=== PATIENT | female | born 1965 | race African-American/Black ===

== ENCOUNTER → 2016-10-15 | Outpatient (CLI) | payer OTHER ==
--- NOTE | 2016-10-15 17:04 | XR ---
Right foot HISTORY: Pain 2 views of the right foot Correlation to right ankle same date Bone mineralization and alignment are maintained. Mild degenerative change at the first digit. There is a plantar calcaneal spur. Joint space loss, marginal spurring at the tibiotalar and intertarsal julissa ints. IMPRESSION: Osteoarthritis.
--- NOTE | 2016-10-15 17:05 | XR ---
Right ankle HISTORY: Pain 2 views of the right ankle correlated to right foot same date Loss of joint space at the tibiotalar joint with marginal spurring is present. There is a talar beak. Spurring present at the intertarsal joints. Bone mineralization and alignment are maintained. There is a plantar calcaneal spur. Small ossific density present distal to the medial malleolus. Suspect th ere is an osteochondral defect at the medial ankle mortise. IMPRESSION: Suspect osteochondral defect, ankle MRI may be of benefit. Osteoarthritis.
== END | disposition home or self-care (01) ==
LOC: RADXRMAIN 14:05
PROVIDERS: ATTEND Internal Medicine
DX: M19.071 Primary osteoarthritis, right ankle and foot (principal)

== ENCOUNTER → 2017-10-31 | Outpatient (CLI) | payer OTHER ==
--- NOTE | 2017-10-31 16:58 | XR ---
EXAMINATION TYPE: XR hand complete LT DATE OF EXAM: 10/31/2017 COMPARISON: NONE HISTORY: Pain in hand following fall TECHNIQUE: Three-view left hand FINDINGS: No acute fractures are evident. Soft tissues appear normal. Joint spaces are preserved. IMPRESSION: 1. Normal three-view left hand. 2. Follow-up exam can be performed 7-10 days from acute trauma for continued pain.
--- NOTE | 2017-10-31 17:00 | XR ---
EXAMINATION TYPE: XR knee complete RT DATE OF EXAM: 10/31/2017 COMPARISON: NONE HISTORY: Fall, pain TECHNIQUE: Right knee is examined in 3 projections FINDINGS: There is narrowing of the medial compartment joint space. Some narrowing of the lateral compartment j oint space is present. There is narrowing of the patellofemoral joint space. Small joint effusion is present. Posterior superior and posterior inferior patellar spurs as well as spurring from the anteri or tibia is present. Medial tibial plateau lateral tibial plateau and medial femoral condylar spurrin g is present. No acute fractures are identified. IMPRESSION: 1. No acute osseous abnormality. 2. Moderately advanced degenerative changes
--- NOTE | 2017-10-31 17:01 | XR ---
EXAMINATION TYPE: XR lumbar spine 2 or 3V DATE OF EXAM: 10/31/2017 COMPARISON: NONE HISTORY: Fall, pain TECHNIQUE: Three-view lumbar spine FINDINGS: Disc heights are preserved. Vertebral body heights are preserved. There is straightening of the vertebral body alignment in the lateral projection. There are 5 lumbar-type vertebral bodies. The pedicles are intact. IMPRESSION: 1. Normal three-view lumbar spine.
--- NOTE | 2017-11-01 14:34 | US ---
EXAMINATION TYPE: US venous doppler duplex LE RT DATE OF EXAM: 10/31/2017 4:24 PM COMPARISON: NONE CLINICAL HISTORY: M79.604 Pain in right leg. SIDE PERFORMED: Right TECHNIQUE: The lower extremity deep venous system is examined utilizing real time linear array sonog dariusz with graded compression, doppler sonography and color-flow sonography. VESSELS IMAGED: External Iliac Vein (EIV) Common Femoral Vein Deep Femoral Vein Greater Saphenous Vein * Femoral Vein Popliteal Vein Small Saphenous Vein * Proximal Calf Veins (* superficial vessels) Technically difficult study, patient unable to adduct leg. Right Leg: Negative for DVT IMPRESSION: No evidence of DVT.
== END | disposition home or self-care (01) ==
LOC: RADUSWWP 16:03
PROVIDERS: ATTEND Emergency Medicine
DX: M17.11 Unilateral primary osteoarthritis, right knee (principal); S60.221A Contusion of right hand, initial encounter; M79.661 Pain in right lower leg; M79.89 Other specified soft tissue disorders
CPT/HCPCS: 72100

== ENCOUNTER → 2017-11-03 | Outpatient (CLI) | payer OTHER ==
--- NOTE | 2017-11-03 17:02 | XR ---
EXAMINATION TYPE: XR cervical spine limited DATE OF EXAM: 11/03/2017 COMPARISON: NONE HISTORY: Pain after falling TECHNIQUE: 4 views FINDINGS: Vertebra have fairly normal alignment. Atlantoaxial facet joint is intact. There is hypertr ophic anterior spurring from C3 to C7. C7 is not well seen. Patient could not be in position for a sw immer's view. There is multilevel facet arthropathy in the cervical spine. Facet joints are not well defined. IMPRESSION: Degenerative spurring. There is moderate spurring in the facet joints for the patient's a ge. No fracture.
--- NOTE | 2017-11-03 17:04 | XR ---
EXAMINATION TYPE: XR shoulder complete LT DATE OF EXAM: 11/03/2017 COMPARISON: NONE HISTORY: Shoulder pain TECHNIQUE: 5 views FINDINGS: There is some spurring of the inferior glenoid labrum. I see no fracture nor dislocation. A C joint is intact. IMPRESSION: There is some osteoarthritis at the glenohumeral joint. No fracture seen.
== END | disposition home or self-care (01) ==
LOC: RADXRMAIN 16:20
PROVIDERS: ATTEND Emergency Medicine
DX: M46.02 Spinal enthesopathy, cervical region (principal); M19.012 Primary osteoarthritis, left shoulder
CPT/HCPCS: 72040

== ENCOUNTER 2017-11-06 08:28 | Observation (INO) | payer OTHER ==
[2017-11-06] MEDS ORDERED: SODIUM CHLORIDE 0.9% 500 ML IV STA (09:12)
[2017-11-06] MEDS ORDERED: LIDOCAINE 5% PATCH TOPICAL STA (09:12)
[2017-11-06] MEDS ORDERED: NITROGLYCERIN SL TABS 0.4 MG TAB SUBLINGUAL STA (09:12)
[2017-11-06] MEDS ORDERED: ASPIRIN 81 MG PO STA (09:12)
[2017-11-06] MEDS ORDERED: SODIUM CHLORIDE 0.9% 1,000 ML IV STA (09:12)
--- NOTE | 2017-11-06 09:15 | ED ---
General Adult HPI - General Chief complaint: Back Pain/Injury Stated complaint: Back Pain Time Seen by Provider: 11/06/17 09:03 Source: patient, RN notes reviewed Mode of arrival: EMS Limitations: no limitations - History of Present Illness Initial comments: Patient's a 52-year-old female who presents emergency room today with a chief complaint of lower back pain. She does admit that she had a slip and fall 5 days ago was seen and had x-rays obtained. She states it seems to be getting worse. She's been using [place]. Has not taken a [place] today because she knew she was coming to the hospital. She states she try to take a bath last night but had little relief the symptoms. She also missed that last night approximate 1 AM when she was taking his bath she began having some chest pain she describes it as a tightness and feels a little short of breath with it. She states this is new. She states has not had this before. Patient denies any recent fever, chills, shortness of breath, abdominal pain, nausea or vomiting, numbness or tingling, dysuria or hematuria, constipation or diarrhea, headaches or visual changes, or any other complaints. - Related Data Home Medications Medication Instructions Recorded Confirmed Hydrocodone/Acetaminophen [[place] 1 tab PO QID PRN 11/06/17 11/06/17 10-325] Zolpidem [Ambien] 10 mg PO HS 11/06/17 11/06/17 Allergies Allergy/AdvReac Type Severity Reaction Status Date / Time No Known Allergies Allergy Verified 11/06/17 09:04 Review of Systems ROS Statement: Those systems with pertinent positive or pertinent negative responses have been documented in the HPI. ROS Other: All systems not noted in ROS Statement are negative. Past Medical History Past Medical History: No Reported History Additional Past Medical History / Comment(s): Arthritis History of Any Multi-Drug Resistant Organisms: None Reported Past Surgical History: No Surgical Hx Reported Past Psychological History: Depression Smoking Status: Former smoker Past Alcohol Use History: Rare Past Drug Use History: None Reported General Exam - General Exam Comments Initial Comments: General: The patient is awake and alert, in no distress, and does not appear acutely ill. Eye: Pupils are equal, round and reactive to light, extra-ocular movements are intact. No nystagmus. There is normal conjunctiva bilaterally. No signs of icterus. Ears, nose, mouth and throat: There are moist mucous membranes and no oral lesions. Neck: The neck is supple, there is no tenderness or JVD. Cardiovascular: There is a regular rate and rhythm. No murmur, rub or gallop is appreciated. Tender to palpation over the anterior chest wall. Respiratory: Lungs are clear to auscultation, respirations are non-labored, breath sounds are equal. No wheezes, stridor, rales, or rhonchi. Musculoskeletal: Normal ROM. No appearance of thoracic lumbar spine. Mild tenderness lower lumbar L4-L5. Mild paravertebral tenderness both left and right sides. Patient does show slow movements due to pain. Strength 5/5. Sensation intact. Pulses equal bilaterally 2+. Neurological: A&O x 3. CN II-XII intact, There are no obvious motor or sensory deficits. Coordination appears grossly intact. Speech is normal. Skin: Skin is warm and dry and no rashes or lesions are noted. Psychiatric: Cooperative, appropriate mood & affect, normal judgment. Limitations: no limitations Course Vital Signs 11/06/17 11/06/17 11/06/17 08:41 09:47 10:53 Temperature 98.0 F Pulse Rate 61 71 60 Respiratory 18 20 20 Rate Blood Pressure 168/100 161/69 188/99 O2 Sat by Pulse 100 98 99 Oximetry 11/06/17 11:16 Temperature Pulse Rate 61 Respiratory 18 Rate Blood Pressure 168/97 O2 Sat by Pulse 98 Oximetry Medical Decision Making - Medical Decision Making Patient reexamined at time shows no signs of distress. She admits she still expresses some lower back pain. Her x-rays negative. Patient does admit that chest pain started approximately 1 AM. Initial set of cardiac enzymes are negative. She states she still expresses some chest discomfort. She describes it as a pressure. Patient will be admitted to the hospital for serial enzymes. - Lab Data Result diagrams: 11/06/17 09:35 11/06/17 09:35 Lab Results 11/06/17 11/06/17 11/06/17 Range/Units 09:35 09:35 09:35 WBC 3.4 L (3.8-10.6) k/uL RBC 4.32 (3.80-5.40) m/uL Hgb 13.0 (11.4-16.0) gm/dL Hct 39.9 (34.0-46.0) % MCV 92.4 (80.0-100.0) fL MCH 30.2 (25.0-35.0) pg MCHC 32.7 (31.0-37.0) g/dL RDW 13.8 (11.5-15.5) % Plt Count 218 (150-450) k/uL Neutrophils % 48 % Lymphocytes % 42 % Monocytes % 5 % Eosinophils % 3 % Basophils % 1 % Neutrophils # 1.6 (1.3-7.7) k/uL Lymphocytes # 1.4 (1.0-4.8) k/uL Monocytes # 0.2 (0-1.0) k/uL Eosinophils # 0.1 (0-0.7) k/uL Basophils # 0.0 (0-0.2) k/uL PT (9.0-12.0) sec INR (<1.2) APTT (22.0-30.0) sec D-Dimer (<0.60) mg/L FEU Sodium 142 (137-145) mmol/L Potassium 4.1 (3.5-5.1) mmol/L Chloride 105 (98-107) mmol/L Carbon Dioxide 29 (22-30) mmol/L Anion Gap 8 mmol/L BUN 13 (7-17) mg/dL Creatinine 0.79 (0.52-1.04) mg/dL Est GFR (MDRD) Af Amer >60 (>60 ml/min/1.73 sqM) Est GFR (MDRD) Non-Af >60 (>60 ml/min/1.73 sqM) Glucose 98 (74-99) mg/dL Calcium 9.4 (8.4-10.2) mg/dL Magnesium 1.9 (1.6-2.3) mg/dL Total Bilirubin 0.4 (0.2-1.3) mg/dL AST 18 (14-36) U/L ALT 31 (9-52) U/L Alkaline Phosphatase 70 (38-126) U/L Total Creatine Kinase 85 (30-135) U/L CK-MB (CK-2) 1.3 (0.0-2.4) ng/mL CK-MB (CK-2) Rel Index 1.5 Troponin I <0.012 (0.000-0.034) ng/mL NT-Pro-B Natriuret Pep pg/mL Total Protein 6.6 (6.3-8.2) g/dL Albumin 3.8 (3.5-5.0) g/dL 11/06/17 11/06/17 Range/Units 09:35 09:35 WBC (3.8-10.6) k/uL RBC (3.80-5.40) m/uL Hgb (11.4-16.0) gm/dL Hct (34.0-46.0) % MCV (80.0-100.0) fL MCH (25.0-35.0) pg MCHC (31.0-37.0) g/dL RDW (11.5-15.5) % Plt Count (150-450) k/uL Neutrophils % % Lymphocytes % % Monocytes % % Eosinophils % % Basophils % % Neutrophils # (1.3-7.7) k/uL Lymphocytes # (1.0-4.8) k/uL Monocytes # (0-1.0) k/uL Eosinophils # (0-0.7) k/uL Basophils # (0-0.2) k/uL PT 10.2 (9.0-12.0) sec INR 1.0 (<1.2) APTT 25.7 (22.0-30.0) sec D-Dimer 0.30 (<0.60) mg/L FEU Sodium (137-145) mmol/L Potassium (3.5-5.1) mmol/L Chloride (98-107) mmol/L Carbon Dioxide (22-30) mmol/L Anion Gap mmol/L BUN (7-17) mg/dL Creatinine (0.52-1.04) mg/dL Est GFR (MDRD) Af Amer (>60 ml/min/1.73 sqM) Est GFR (MDRD) Non-Af (>60 ml/min/1.73 sqM) Glucose (74-99) mg/dL Calcium (8.4-10.2) mg/dL Magnesium (1.6-2.3) mg/dL Total Bilirubin (0.2-1.3) mg/dL AST (14-36) U/L ALT (9-52) U/L Alkaline Phosphatase (38-126) U/L Total Creatine Kinase (30-135) U/L CK-MB (CK-2) (0.0-2.4) ng/mL CK-MB (CK-2) Rel Index Troponin I (0.000-0.034) ng/mL NT-Pro-B Natriuret Pep 101 pg/mL Total Protein (6.3-8.2) g/dL Albumin (3.5-5.0) g/dL Disposition Clinical Impression: Chest pain, Low back pain Disposition: ADMITTED IP TO THIS HOSP Condition: Stable Referrals: Papa Shelton MD [Primary Care Provider] - 1-2 days Time of Disposition: 11:47
[2017-11-06 09:58] LABS: Basophils % (A) 1 %; Eosinophils # (A) 0.1 k/uL (0-0.7); Eosinophils % (A) 3 %; HCT 39.9 % (34.0-46.0); Lymphocytes # (A) 1.4 k/uL (1.0-4.8); Lymphocytes % (A) 42 %; MCH 30.2 pg (25.0-35.0); MCHC 32.7 g/dL (31.0-37.0); MCV 92.4 fL (80.0-100.0); Mean Platelet Volume 6.6; Monocytes # (A) 0.2 k/uL (0-1.0); Monocytes % (A) 5 %; Neutrophils # (A) 1.6 k/uL (1.3-7.7); Neutrophils % (A) 48 %; Platelet Count 218 k/uL (150-450); RBC 4.32 m/uL (3.80-5.40); RDW 13.8 % (11.5-15.5); WBC 3.4 k/uL (3.8-10.6)
[2017-11-06 10:08] LABS: D-Dimer 0.3 mg/L FEU (<0.60)
[2017-11-06 10:11] LABS: ALT 31 U/L (9-52); AST 18 U/L (14-36); Albumin 3.8 g/dL (3.5-5.0); Alkaline Phosphatase 70 U/L (38-126); Anion Gap 8 mmol/L; Blood Urea Nitrogen 13 mg/dL (7-17); Calcium 9.4 mg/dL (8.4-10.2); Carbon Dioxide 29 mmol/L (22-30); Chloride 105 mmol/L (98-107); Glucose 98 mg/dL (74-99); Magnesium 1.9 mg/dL (1.6-2.3); Potassium 4.1 mmol/L (3.5-5.1); Sodium 142 mmol/L (137-145); Total Bilirubin 0.4 mg/dL (0.2-1.3); Total Protein 6.6 g/dL (6.3-8.2)
[2017-11-06 10:14] LABS: Partial Thromboplastin Time 25.7 sec (22.0-30.0); Prothrombin Time 10.2 sec (9.0-12.0)
[2017-11-06 10:18] LABS: Creatine Kinase 85 U/L (30-135)
[2017-11-06 10:32] LABS: Creatine Kinase MB 1.3 ng/mL (0.0-2.4); Troponin I <0.012 ng/mL (0.000-0.034)
--- NOTE | 2017-11-06 10:42 | XR ---
EXAMINATION TYPE: XR lumbar spine 2 or 3V DATE OF EXAM: 11/06/2017 CLINICAL HISTORY: pain TECHNIQUE: Three views of the lumbar spine are submitted. COMPARISON: None. FINDINGS: There are 5 lumbar type vertebral bodies identified. The lumbar spine shows satisfactory alignment w ithout evidence of acute fracture or dislocation. Vertebral body heights are within normal limits. Mild degenerative disc space narrowing and spondylosis. Facet joint arthropathy noted. The overlying soft tissue appears unremarkable. IMPRESSION: No acute fracture or dislocation is seen in the lumbar spine. ICD 10 NO FRACTURE, INITIAL EVALUATION
--- NOTE | 2017-11-06 10:42 | XR ---
EXAMINATION TYPE: XR chest 2V DATE OF EXAM: 11/06/2017 COMPARISON: NONE HISTORY: Shortness of breath TECHNIQUE: Frontal and lateral views of the chest are obtained. FINDINGS: Scattered senescent parenchymal changes noted. Hyperinflation compatible with COPD. No evidence for infiltrate. No evidence for atelectasis. Heart size is stable. Mediastinal structures are stable and grossly unremarkable. No evidence for hilar prominence. Degenerative changes dorsal spine. IMPRESSION: 1. No evidence for acute pulmonary disease.
[2017-11-06] MEDS ORDERED: MORPHINE SULFATE 4 MG/ML SYRINGE IV STA (11:08)
[2017-11-06] MEDS ORDERED: MORPHINE SULFATE 4 MG/ML SYRINGE IVP PRN (11:47)
[2017-11-06] MEDS ORDERED: HEPARIN SODIUM,PORCINE 5,000 UNIT/ML 1 ML VIAL IV ONE (11:47)
[2017-11-06] MEDS ORDERED: NITROGLYCERIN SL TABS 0.4 MG TAB SUBLINGUAL PRN (11:47)
[2017-11-06] MEDS ORDERED: HEPARIN SOD,PORK IN 0.45% NACL 25,000 UNIT in 0.45% NACL 1 500ML.BAG IV SCH (12:00)
[2017-11-06 12:42] LABS: Appearance,Urine Clear (Clear); Bilirubin,Urine Negative (Negative); Blood,Urine Negative (Negative); Color,Urine Light Yellow; Glucose,Urine (UA) Negative (Negative); Ketones,Urine Negative (Negative); Leukocyte Esterase,Urine Negative (Negative); Nitrite,Urine Negative (Negative); PH, Urine 6.5 (5.0-8.0); Protein,Urine Negative (Negative); Specific Gravity,Urine 1.008 (1.001-1.035); Urobilinogen,Urine <2.0 mg/dL (<2.0)
[2017-11-06] MEDS: HYDROcodone/APAP 5-325MG 1 EACH TAB PO PRN ×2 (16:36→21:53)
[2017-11-06 17:29] LABS: Creatine Kinase 79 U/L (30-135)
[2017-11-06 17:41] LABS: Troponin I <0.012 ng/mL (0.000-0.034)
[2017-11-06 19:01] VITALS: BMI 34.0
[2017-11-06] MEDS ORDERED: HEPARIN SODIUM,PORCINE 5,000 UNIT/ML 1 ML VIAL IV PRN (19:11)
[2017-11-06] MEDS: DOCUSATE 100 MG CAP PO SCH (21:53)
[2017-11-06] MEDS: ZOLPIDEM 10 MG TAB PO SCH (21:53)
[2017-11-06] MEDS: CYCLOBENZAPRINE 10 MG TAB PO PRN (21:56)
[2017-11-06 23:56] LABS: Cholesterol 168 mg/dL (<200); HDL Cholesterol 80 mg/dL (40-60); LDL Cholesterol,Calculated 77 mg/dL (0-99); Triglycerides 56 mg/dL (<150)
[2017-11-07] MEDS: HYDROcodone/APAP 5-325MG 1 EACH TAB PO PRN ×3 (04:31→20:25)
[2017-11-07] MEDS ORDERED: ASPIRIN 325 MG TAB PO SCH (09:00)
[2017-11-07] MEDS: DOCUSATE 100 MG CAP PO SCH (09:28)
--- NOTE | 2017-11-07 09:55 | P.CRDCN ---
History of Present Illness Consult date: 11/07/17 Consult reason: chest pain History of present illness: This is a 52-year-old -[place] female with no significant past medical history. She denies history of coronary artery disease but was a former smoker. She quit 2 years ago. We have been asked to see her in consultation for complaints of chest pain. She states she had a slip and near fall earlier this month and strained her lower back. She's been struggling with movement frequently ever since. She states yesterday she was in the bathtub and was unable to get herself up and out secondary to her lower back pain hurting. She had been struggling for approximately 20 minutes and she started developing tightness in the center of her chest. This was associated with mild shortness of breath. She denies associated palpitations, dizziness, nausea, vomiting. She states the pain is still ongoing. It is worse with movement and deep inspiration. She is unable to lean forward for me to fully examine her secondary to the generalized pain. EKG reveals sinus mechanism with no acute ST or T-wave abnormalities. Chest xray is negative for an acute cardiopulmonary process. Xray of L-spine is negative for fracture. Laboratory data reviewed, hgb 13.0, plt 218, potassium 4.1, magnesium 1.9, d- dimer negative, cardiac enzymes negative x2, LDL 77, HDL 80. She takes no cardiac medications. There is no old cardiac records to review. Review of Systems At the time of my exam: CONSTITUTIONAL: Denies fever. Denies chills. EYES: Denies blurred vision. Denies vision changes. Denies eye pain. EARS, NOSE, MOUTH & THROAT: Denies headache. Denies sore throat. Denies ear pain. CARDIOVASCULAR: Denies chest pain. Denies shortness of breath. Denies orthopnea. Denies PND. Denies palpitations. RESPIRATORY: Denies cough. GASTROINTESTINAL: Denies abdominal pain. Denies diarrhea. Denies constipation. Denies nausea. Denies vomiting. MUSCULOSKELETAL: Complains of low back and thoracic pain, worse with inspiration or movement. INTEGUMENTARY: Denies pruitis. Denies rash. NEUROLOGIC: Denies numbness. Denies tingling. Denies weakness. PSYCHIATRIC: Denies anxiety. Denies depression. ENDOCRINE: Denies fatigue. Denies weight change. Denies polydipsia. Denies polyurina. GENITOURINARY: Denies burning, hematuria or urgency with micturation. HEMATOLOGIC: Denies history of anemia. Denies bleeding. Past Medical History Past Medical History: No Reported History, Hypertension, Osteoarthritis (OA) Additional Past Medical History / Comment(s): Arthritis bilateral legs, L ankle , pt states she was placed on HTN med last summer but took herself off. History of Any Multi-Drug Resistant Organisms: None Reported Past Surgical History: Orthopedic Surgery, Tonsillectomy Additional Past Surgical History / Comment(s): L ankle sx for arthritis. Past Anesthesia/Blood Transfusion Reactions: No Reported Reaction, Motion Sickness Past Psychological History: Depression Additional Psychological History / Comment(s): Pt resides alone. She is currently using a cane. She drives. Smoking Status: Former smoker Past Alcohol Use History: Rare Additional Past Alcohol Use History / Comment(s): Pt started smoking in 1983 and quit in 2015. Past Drug Use History: None Reported - Past Family History Father Family Medical History: Dementia Mother Family Medical History: No Reported History Additional Family Medical History / Comment(s): Mother is healthy Medications and Allergies Home Medications Medication Instructions Recorded Confirmed Type Hydrocodone/Acetaminophen [[place] 1 tab PO QID PRN 11/06/17 11/06/17 History 10-325] Zolpidem [Ambien] 10 mg PO HS 11/06/17 11/06/17 History Allergies Allergy/AdvReac Type Severity Reaction Status Date / Time No Known Allergies Allergy Verified 11/06/17 09:04 Physical Exam Vitals: Vital Signs Temp Pulse Pulse Pulse Resp BP BP 11/07/17 04:00 98.2 F 72 16 133/93 11/07/17 03:37 16 11/07/17 00:00 16 11/06/17 23:23 98.2 F 97 16 162/87 11/06/17 20:00 16 11/06/17 19:25 98.2 F 62 16 146/81 11/06/17 16:00 97.9 F 58 L 16 172/113 11/06/17 13:35 98.6 F 60 18 144/99 11/06/17 11:16 61 18 168/97 11/06/17 10:53 60 20 188/99 11/06/17 09:47 71 20 161/69 11/06/17 08:41 98.0 F 61 18 168/100 Pulse Ox 11/07/17 04:00 11/07/17 03:37 11/07/17 00:00 11/06/17 23:23 97 11/06/17 20:00 11/06/17 19:25 98 11/06/17 16:00 100 11/06/17 13:35 100 11/06/17 11:16 98 11/06/17 10:53 99 11/06/17 09:47 98 11/06/17 08:41 100 Intake and Output 11/06/17 11/07/17 11/07/17 22:59 06:59 14:59 Intake Total 131.906 68.272 Balance 131.906 68.272 Intake: Intake, IV Titration 131.906 68.272 Amount Heparin Sod,Pork in 0.45% 131.906 68.272 NaCl 25,000 unit In 0.45 % NaCl 1 500ml.bag @ 12 UNITS/KG/HR 19.59 mls/hr IV .Q24H [facility] Rx#: [id number] Other: Voiding Method Toilet Toilet # Voids 1 1 # Bowel Movements 1 Blood pressure 133/93 heart rate 72 afebrile GENERAL: This is a 52-year-old -[place] female in no apparent distress at the time of my examination. HEENT: Head is atraumatic, normocephalic. Pupils are equal, round. Sclerae anicteric. Conjunctivae are clear. Mucous membranes of the mouth are moist. Neck is supple. There is no jugular venous distention. No carotid bruit is heard. LUNGS: Clear to auscultation no wheezes, rales or rhonchi. No chest wall tenderness is noted on palpation or with deep breathing. HEART: Regular rate and rhythm without murmurs, rubs or gallops. S1 and S2 heard. ABDOMEN: Soft, nontender. Bowel sounds are heard. No organomegaly noted. EXTREMITIES: No evidence of peripheral edema and no calf tenderness noted. VASCULAR: Radial and dorsalis pedis pulses palpated, no evidence of clubbing. NEUROLOGIC: Patient is awake, alert and oriented x3. Results 11/06/17 09:35 11/06/17 09:35 Cardiac Enzymes 11/06/17 11/06/17 11/06/17 Range/Units 09:35 09:35 16:44 AST 18 (14-36) U/L CK-MB (CK-2) 1.3 1.0 (0.0-2.4) ng/mL Troponin I <0.012 <0.012 (0.000-0.034) ng/mL Coagulation 11/06/17 11/06/17 Range/Units 09:35 16:44 PT 10.2 (9.0-12.0) sec APTT 25.7 83.0 H (22.0-30.0) sec Lipids 11/06/17 Range/Units 09:35 Triglycerides 56 (<150) mg/dL Cholesterol 168 (<200) mg/dL HDL Cholesterol 80 H (40-60) mg/dL CBC 11/06/17 Range/Units 09:35 WBC 3.4 L (3.8-10.6) k/uL RBC 4.32 (3.80-5.40) m/uL Hgb 13.0 (11.4-16.0) gm/dL Hct 39.9 (34.0-46.0) % Plt Count 218 (150-450) k/uL Comprehensive Metabolic Panel 11/06/17 Range/Units 09:35 Sodium 142 (137-145) mmol/L Potassium 4.1 (3.5-5.1) mmol/L Chloride 105 (98-107) mmol/L Carbon Dioxide 29 (22-30) mmol/L BUN 13 (7-17) mg/dL Creatinine 0.79 (0.52-1.04) mg/dL Glucose 98 (74-99) mg/dL Calcium 9.4 (8.4-10.2) mg/dL AST 18 (14-36) U/L ALT 31 (9-52) U/L Alkaline Phosphatase 70 (38-126) U/L Total Protein 6.6 (6.3-8.2) g/dL Albumin 3.8 (3.5-5.0) g/dL Current Medications Generic Name Dose Route Start Last Admin Trade Name Freq PRN Reason Stop Dose Admin Hydrocodone Bitart/Acetaminophen 1 each 11/06/17 14:51 11/07/17 04:31 [place] 5-325 PO 1 each Q4HR PRN Administration Pain Aspirin 325 mg 11/07/17 09:00 Aspirin PO DAILY [facility] Cyclobenzaprine HCl 10 mg 11/06/17 20:55 11/06/17 21:56 Flexeril PO 10 mg TID PRN Administration Muscle Spasm Docusate Sodium 100 mg 11/06/17 21:00 11/06/17 21:53 Colace PO 100 mg BID [facility] Administration Heparin Sodium (Porcine) 0 unit 11/06/17 19:11 Heparin IV PER PROTOCOL PRN Low PTT Protocol Heparin Sodium/Sodium Chloride 500 mls @ 19.59 mls/hr 11/06/17 12:00 23:20 25,000 unit/ Sodium Chloride IV 0 units/kg/hr .Q24H [facility] 0 mls/hr Protocol Titration 12 UNITS/KG/HR Morphine Sulfate 2 mg 11/06/17 11:47 Morphine Sulfate (Inj) IVP Q5M PRN Chest Pain Nitroglycerin 0.4 mg 11/06/17 11:47 Nitrostat SUBLINGUAL Q5M PRN Chest Pain Zolpidem Tartrate 10 mg 11/06/17 21:00 11/06/17 21:53 Ambien PO 10 mg HS [facility] Administration Intake and Output 11/06/17 11/07/17 11/07/17 22:59 06:59 14:59 Intake Total 131.906 68.272 Balance 131.906 68.272 Intake: Intake, IV Titration 131.906 68.272 Amount Heparin Sod,Pork in 0.45% 131.906 68.272 NaCl 25,000 unit In 0.45 % NaCl 1 500ml.bag @ 12 UNITS/KG/HR 19.59 mls/hr IV .Q24H [facility] Rx#: [id number] Other: Voiding Method Toilet Toilet # Voids 1 1 # Bowel Movements 1 11/06/17 09:35 11/06/17 09:35 Assessment and Plan Assessment: ASSESSMENT 1. Pleuritic chest pain s/p recent back injury. No evidence of cardiac ischemia. No EKG changes, cardiac enzymes unremarkable. PLAN From a cardiac perspective there is no indication of this to be related to cardiac cause, an acute coronary event has been ruled out. Her pain is musculoskeletal in nature and possibly anti-inflammatory analgesic may be helpful. Stable for discharge from cardiac perspective. Thank you kindly for this consultation. Nurse Practitioner note has been reviewed, I agree with a documented findings and plan of care. Patient was seen and examined.
--- NOTE | 2017-11-07 10:34 | P.HPIM ---
History of Present Illness H&P Date: 11/06/17 Chief Complaint: Lower back pain and chest tightness A 52-year-old female with a history of hypertension and arthritis came to ER with complaints of lower back pain. patient is that she had an accident at work where he slip and fall about 5 days ago. Patient had x-ray done at that time showed no acute fracture abnormality. Patient says that has been getting worse and she she is taking [place] at home. Patient apparently went to shower last night she began to have tightness in her chest and worsening back pain and mild shortness of breath. Patient came to the hospital for further evaluation. Patient initially came to the hospital with back pain lower area did while in the ER patient also felt chest tightness again and was admitted to the hospital for cardiac ablation. Patient denies any recent fever, chills, shortness of breath, abdominal pain, nausea or vomiting, numbness or tingling, dysuria or hematuria, constipation or diarrhea, headaches or visual changes, or any other complaints. EKG showed sinus rhythm. Chest x-ray negative for acute problem process x-ray of the LS spine is negative for fracture dislocation. Troponin 1 negative D-dimer negative Review of Systems Constitutional: Patient denies any fever or chills . No generalized weakness or weight loss. Abdomen: Patient denied nausea vomiting and diarrhea and abdominal pain. Cardiovascular: Patient denies any chest pain or short of breath no palpitations. Respiratory: patient denied any cough is from production. No shortness of breath Neurologic: Patient denied any numbness or tingling headache. Musculoskeletal: Patient denies any complaints of joint swelling or deformity. Lower back pain Skin: Negative Psychiatric: Negative Endocrine: No heat or cold intolerance. No recent weight gain. Genitourinary: No dysuria or hematuria. All other 14 point ROS negative except the above Past Medical History Past Medical History: No Reported History, Hypertension, Osteoarthritis (OA) Additional Past Medical History / Comment(s): Arthritis bilateral legs, L ankle , pt states she was placed on HTN med last summer but took herself off. History of Any Multi-Drug Resistant Organisms: None Reported Past Surgical History: Orthopedic Surgery, Tonsillectomy Additional Past Surgical History / Comment(s): L ankle sx for arthritis. Past Anesthesia/Blood Transfusion Reactions: No Reported Reaction, Motion Sickness Smoking Status: Former smoker - Past Family History Father Family Medical History: Dementia Mother Family Medical History: No Reported History Additional Family Medical History / Comment(s): Mother is healthy Medications and Allergies Home Medications Medication Instructions Recorded Confirmed Type Hydrocodone/Acetaminophen [[place] 1 tab PO QID PRN 11/06/17 11/06/17 History 10-325] Zolpidem [Ambien] 10 mg PO HS 11/06/17 11/06/17 History Allergies Allergy/AdvReac Type Severity Reaction Status Date / Time No Known Allergies Allergy Verified 11/06/17 09:04 Physical Exam Vitals: Vital Signs Temp Pulse Resp BP Pulse Ox 11/06/17 13:35 98.6 F 60 18 144/99 100 11/06/17 11:16 61 18 168/97 98 11/06/17 10:53 60 20 188/99 99 11/06/17 09:47 71 20 161/69 98 11/06/17 08:41 98.0 F 61 18 168/100 100 Intake and Output 11/05/17 11/06/17 11/06/17 22:59 06:59 14:59 Other: Weight 81.647 kg Patient Weight 11/07/17 06:59 Weight 81.647 kg PHYSICAL EXAMINATION: Patient is lying in the bed comfortably, no acute distress, awake alert and oriented.. HEENT: Normocephalic. Neck is supple. Pupils reactive. Nostrils clear. Oral cavity is moist. Ears reveal no drainage. Neck reveals no JVD, carotid bruits, or thyromegaly. CHEST EXAMINATION: Trachea is central. Symmetrical expansion. Lung coronel clear to auscultation and percussion. CARDIAC: Normal S1, S2 with no gallops. No murmurs ABDOMEN: Soft. Bowel sounds normal. No organomegaly. No abdominal bruits. Extremities: reveal no edema. No clubbing or cyanosis Neurologically awake, alert, oriented x3 with well-coordinated movements. No focal deficits noted Skin: No rash or skin lesions. Psychiatric: Coperative. Nonsuicidal Musculoskeletal: No joint swelling or deformity. Normal range of motion. Results CBC & Chem 7: 11/06/17 09:35 11/06/17 09:35 Labs: Abnormal Lab Results - Last 24 Hours (Table) 11/06/17 Range/Units 09:35 WBC 3.4 L (3.8-10.6) k/uL Thrombosis Risk Factor Assmnt - Choose All That Apply Any of the Below Risk Factors Present?: Yes Each Factor Represents 1 point: Age 41-60 years, Obesity (BMI >25) Other Risk Factors: No Other congenital or acquired thrombophilia - If yes, enter type in comment: No Thrombosis Risk Factor Assessment Total Risk Factor Score: 2 Thrombosis Risk Factor Assessment Level: Low Risk Assessment and Plan Assessment: Lower back pain status post recent fall 5 days ago. No fracture noted and x-ray Chest tightness likely musculoskeletal. Rule out ACS Hypertension Osteoarthritis Plan: Patient will be continued on pain management and muscle relaxants. Telemetry monitoring and serial EKGs and troponins. Will follow closely. Further admissions based on the clinical course. Time with Patient: Greater than 30
[2017-11-07] MEDS: KETOROLAC 30 MG/ML 1 ML VIAL IVP SCH ×2 (11:46→18:04)
[2017-11-07] MEDS ORDERED: MORPHINE ORAL SOLN 10 MG/5 ML CUP PO PRN (13:17)
[2017-11-07] MEDS: CYCLOBENZAPRINE 10 MG TAB PO PRN (15:04)
[2017-11-07] MEDS: ZOLPIDEM 10 MG TAB PO SCH (20:25)
--- NOTE | 2017-11-07 23:33 | P.PN ---
Subjective Progress Note Date: 11/07/17 Principal diagnosis: Lower back pain A 52-year-old female with a history of hypertension and arthritis came to ER with complaints of lower back pain. patient is that she had an accident at work where he slip and fall about 5 days ago. Patient had x-ray done at that time showed no acute fracture abnormality. Patient says that has been getting worse and she she is taking [place] at home. Patient apparently went to shower last night she began to have tightness in her chest and worsening back pain and mild shortness of breath. Patient came to the hospital for further evaluation. Patient initially came to the hospital with back pain lower area did while in the ER patient also felt chest tightness again and was admitted to the hospital for cardiac ablation. Patient denies any recent fever, chills, shortness of breath, abdominal pain, nausea or vomiting, numbness or tingling, dysuria or hematuria, constipation or diarrhea, headaches or visual changes, or any other complaints. EKG showed sinus rhythm. Chest x-ray negative for acute problem process x-ray of the LS spine is negative for fracture dislocation. Troponin 1 negative D-dimer negative 11/07/2017 Patient denied any complaints of chest pain or shortness of breath. Otherwise patient is still having lower back pain and unable to move around the bed. No fever no chills. No acute overnight issues. Patient is being continued on pain management and encouraged ambulation. All other review of systems negative except the above Current medications reviewed Objective - Vital Signs Vital signs: Vital Signs Temp 98.4 F 11/07/17 19:39 Pulse 64 11/07/17 19:39 Resp 16 11/07/17 20:00 BP 147/94 11/07/17 19:39 Pulse Ox 100 11/07/17 19:39 Intake & Output 11/07/17 11/07/17 11/08/17 06:59 18:59 06:59 Intake Total 672.972 5387 Balance 697.100 2539 Intake: Intake, IV Titration 200.178 Amount Heparin Sod,Pork in 0.45% 200.178 NaCl 25,000 unit In 0.45 % NaCl 1 500ml.bag @ 12 UNITS/KG/HR 19.59 mls/hr IV .Q24H [facility] Rx#: [id number] Oral 1322 Other: Voiding Method Toilet Toilet Toilet # Voids 1 1 # Bowel Movements 1 - Exam PHYSICAL EXAMINATION: Patient is lying in the bed comfortably, no acute distress, awake alert and oriented.. HEENT: Normocephalic. Neck is supple. Pupils reactive. Nostrils clear. Oral cavity is moist. Ears reveal no drainage. Neck reveals no JVD, carotid bruits, or thyromegaly. CHEST EXAMINATION: Trachea is central. Symmetrical expansion. Lung coronel clear to auscultation and percussion. CARDIAC: Normal S1, S2 with no gallops. No murmurs ABDOMEN: Soft. Bowel sounds normal. No organomegaly. No abdominal bruits. Extremities: reveal no edema. No clubbing or cyanosis Neurologically awake, alert, oriented x3 with well-coordinated movements. No focal deficits noted Skin: No rash or skin lesions. Psychiatric: Coperative. Nonsuicidal Musculoskeletal: No joint swelling or deformity. Normal range of motion. - Labs CBC & Chem 7: 11/06/17 09:35 11/06/17 09:35 Labs: Abnormal Lab Results - Last 24 Hours (Table) 11/06/17 Range/Units 09:35 HDL Cholesterol 80 H (40-60) mg/dL Assessment and Plan Assessment: Lower back pain status post recent fall 5 days ago. No fracture noted and x-ray Chest tightness likely musculoskeletal. Rule out ACS Hypertension Osteoarthritis Plan: Patient will be continued on pain management and muscle relaxants. Telemetry monitoring and serial EKGs and troponins. Will follow closely. Further admissions based on the clinical course.
[2017-11-08] MEDS: CYCLOBENZAPRINE 10 MG TAB PO PRN (00:04)
[2017-11-08] MEDS: DOCUSATE 100 MG CAP PO SCH ×2 (00:04→08:25)
[2017-11-08] MEDS: KETOROLAC 30 MG/ML 1 ML VIAL IVP SCH ×3 (00:04→11:59)
[2017-11-08] MEDS: HYDROcodone/APAP 5-325MG 1 EACH TAB PO PRN ×3 (03:30→14:02)
[2017-11-08 08:57] VITALS: RESP 18
--- NOTE | 2017-11-08 10:26 | CONS ---
CONSULTATION This is a lady who is 52 years of age. She came after having fallen and hurt her back. She was seen by Dr. Abad yesterday. Her EKG was unremarkable troponins were unremarkable. She had minor nonspecific T-wave changes. It was thought her symptoms were noncardiac, but yesterday while she was trying to take a shower she developed pressure in the chest, raising the possibility of angina, and I was asked to see her. Repeat EKG at that time suggests nonspecific changes in apicolateral leads. This morning she is resting comfortably, has no symptoms of any chest discomfort. Her blood pressure is 128/80. Pulse rate is about 70 per minute. There is no JVD or carotid bruit. S1, S2 are heard normally. No significant rub, murmur or gallop was detected. Lungs are clear. Abdomen is soft, nontender. Lower extremities reveal normal pulses. No edema. Central nervous system is normal. EKG this morning was repeated and revealed a sinus rhythm. There are very nonspecific T-wave changes noted. I am also recommending a BMP on this lady and another additional troponin. IMPRESSION: 1. Chest pain syndrome with equivocal, nonspecific ST-T changes; could be related to LVH-type picture and patient does have borderline hypertension. 2. Recent fall with back discomfort. RECOMMENDATIONS: I will check an additional troponin. Repeat EKG does not reveal any significant changes that would require intervention. We will check an additional troponin level and also a BMP to rule out electrolyte abnormalities. Thank you very much for the consult. MMODL / IJN: [id number] /
[2017-11-08 11:01] LABS: Anion Gap 7 mmol/L; Blood Urea Nitrogen 19 mg/dL (7-17); Calcium 9.7 mg/dL (8.4-10.2); Carbon Dioxide 31 mmol/L (22-30); Chloride 104 mmol/L (98-107); Glucose 80 mg/dL (74-99); Potassium 4.3 mmol/L (3.5-5.1); Sodium 142 mmol/L (137-145)
[2017-11-08] MEDS ORDERED: LIDOCAINE 5% PATCH TOPICAL SCH (11:30)
[2017-11-08 12:34] VITALS: BP 143/88; PULSE 60; TEMP 98.1
--- NOTE | 2017-11-08 15:42 | CT ---
EXAMINATION TYPE: CT lumbar spine wo con DATE OF EXAM: 11/08/2017 COMPARISON: Radiographs 11/06/2017 HISTORY: 52-year-old female with back pain after fall, Low back pain post trauma on 10/30/17 TECHNIQUE: Contiguous axial scanning of the lumbar spine without IV contrast. Coronal and sagittal re constructions performed. CT DLP: 1374.4 mGycm Automated exposure control for dose reduction was used. FINDINGS: Incidental 2.7 cm hypodense lesion left kidney suggestive of a cyst. Visualized SI joints are intact with mild degenerative changes on the right. No prevertebral or paravertebral soft tissue abnormality seen. Vertebral body heights are maintained. Hypertrophic facet arthropathy is present throughout with trace grade 1 anterolisthesis at L4-L5. Bulging discs are also present throughout, largest at L4-L5. However, there is no large focal disc herniation compromising the spinal canal. Disc bulge at L4-L5 m inimally impresses upon the ventral thecal sac. Changes also result in mild inferior foraminal narrowing inferiorly on either side. IMPRESSION: 1. NO VERTEBRAL COMPRESSION COLLAPSE. 2. 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 3. MILD MULTILEVEL DEGENERATIVE DISC DISEASE. BULGING DISCS IMPRESS ONTO THE VENTRAL THECAL SAC ESPEC IALLY AT L4-L5 BUT DO NOT CONTRIBUTE TO A SIGNIFICANT SPINAL CANAL STENOSIS. 4. VARIABLE MILD INFERIOR FORAMINAL NARROWING SCATTERED THROUGHOUT.
--- NOTE | 2017-12-08 22:01 | P.DS ---
Providers Date of admission: 11/06/17 11:47 Expected date of discharge: 11/08/17 Attending physician: Aiyana Ames Consults: 11/06/17 11:47 Consult Physician Stat Consulting Provider: [facility] Consult Reason/Comments: Chest pain Do you want consulting provider notified?: Yes 11/08/17 09:32 Consult Physician Routine Consulting Provider: Cassie Rabago Consult Reason/Comments: chest pain Do you want consulting provider notified?: Already Contacted Primary care physician: Cat Elam Hospital Course: Discharge diagnosis Lower back pain status post recent fall 5 days ago. No fracture noted and x-ray Chest tightness likely musculoskeletal. Rule out ACS Hypertension Osteoarthritis Hospital course A 52-year-old female with a history of hypertension and arthritis came to ER with complaints of lower back pain. patient is that she had an accident at work where he slip and fall about 5 days ago. Patient had x-ray done at that time showed no acute fracture abnormality. Patient says that has been getting worse and she she is taking Mcnary at home. Patient apparently went to shower last night she began to have tightness in her chest and worsening back pain and mild shortness of breath. Patient came to the hospital for further evaluation. Patient initially came to the hospital with back pain lower area did while in the ER patient also felt chest tightness again and was admitted to the hospital for cardiac ablation. Patient denies any recent fever, chills, shortness of breath, abdominal pain, nausea or vomiting, numbness or tingling, dysuria or hematuria, constipation or diarrhea, headaches or visual changes, or any other complaints. EKG showed sinus rhythm. Chest x-ray negative for acute problem process x-ray of the LS spine is negative for fracture dislocation. Troponin 1 negative D-dimer negative 11/07/2017 Patient denied any complaints of chest pain or shortness of breath. Otherwise patient is still having lower back pain and unable to move around the bed. No fever no chills. No acute overnight issues. Patient is being continued on pain management and encouraged ambulation. 11/08/2017 Patient is back pain is much improved now. No fever no chills. No chest pain or shortness of breath. No nausea vomiting or abdominal pain. Patient is stable to be discharged. Discharge physical examination was done and vitals reviewed Patient Condition at Discharge: Stable Plan - Discharge Summary Discharge Rx Participant: No New Discharge Prescriptions: No Action Zolpidem [Ambien] 10 mg PO HS Hydrocodone/Acetaminophen [[place] 10-325] 1 tab PO QID PRN PRN Reason: Pain Discharge Medication List Hydrocodone/Acetaminophen [[place] 10-325] 1 tab PO QID PRN 11/06/17 [History] Zolpidem [Ambien] 10 mg PO HS 11/06/17 [History] Follow up Appointment(s)/Referral(s): Papa Shelton MD [Primary Care Provider] - 1-2 days Patient Instructions/Handouts: Chest Pain (GEN), Back Pain (GEN) Discharge Disposition: HOME SELF-CARE
== END 2017-11-08 17:19 | disposition home or self-care (01) ==
LOC: EC 08:28 → 3OBS 11:47
PROVIDERS: ADMIT Hospitalist; ATTEND Hospitalist
DX: R07.81 Pleurodynia (principal); R07.89 Other chest pain; M54.5 Low back pain; R06.02 Shortness of breath; I10 Essential (primary) hypertension; T50.996A Underdosing of other drugs, medicaments and biological substances, initial encounter; M19.072 Primary osteoarthritis, left ankle and foot; M19.90 Unspecified osteoarthritis, unspecified site; E66.9 Obesity, unspecified; Z68.34 Body mass index [BMI] 34.0-34.9, adult; Z79.899 Other long term (current) drug therapy; Z87.891 Personal history of nicotine dependence; Z81.8 Family history of other mental and behavioral disorders; W01.0XXD Fall on same level from slipping, tripping and stumbling without subsequent striking against object, subsequent encounter; Y99.0 Civilian activity done for income or pay
CPT/HCPCS: 99285; 96361 ×4; 96375 ×3; 96376 ×4; 96365 ×2; 96366 ×4; 36415; 85379; 83880; 80061; 80053; 80048; 82550; 82553; 83735; 84484 ×2; 85025; 85610; 85730; 81003; 72100; 71046; 72131; G0378 ×3; J2270; J1644 ×2; J1885 ×2; 93005

== ENCOUNTER → 2017-11-27 | Outpatient (CLI) | payer OTHER ==
--- NOTE | 2017-11-27 23:09 | MR ---
EXAMINATION TYPE: MR cspine/lspine wo con DATE OF EXAM: 11/27/2017 COMPARISON: NONE HISTORY: Neck pain and back pain TECHNIQUE: Multiplanar, multisequence imaging of the lumbar spine is performed without IV contrast. M ultiplanar multi echo imaging of the cervical spine was performed without contrast. FINDINGS: Lumbar vertebra have normal alignment. Disc spaces are fairly well-maintained for the patie nt's age. There is no spinal stenosis. There is developmentally adequate spinal canal. There is small posterior disc bulging at L2-3 without compromise of the spinal canal. The lumbar nerve roots appear normal. Neural foramina appear fairly well-maintained. There is no compression fracture. There is no lumbar paraspinal mass. Posterior elements appear intact. There is a 3 cm cortical cyst on the poste rior left kidney. Cervical vertebra have normal alignment. There is developmentally adequate spinal canal in the cervic al spine. There is posterior disc herniation at C3-4 into the spinal canal but no significant impinge ment on the cervical spinal cord. There is a mild posterior disc herniation also at C6-7. Cervical sp inal cord has normal signal pattern without evidence of edema. Brainstem appears intact. The posterio r elements are intact. There is no evidence of a fracture. CONCLUSION: Small posterior disc bulging at L2-3. No spinal stenosis. No fracture. Left renal cortical cyst. Mild posterior disc herniations at C3-4 and C6-7 but there is a large spinal canal and no impingement on the spinal cord. No spinal stenosis.
== END | disposition home or self-care (01) ==
LOC: RADMRIMAIN 21:08
PROVIDERS: ATTEND Emergency Medicine
DX: M51.36 Other intervertebral disc degeneration, lumbar region (principal); M48.02 Spinal stenosis, cervical region; M50.21 Other cervical disc displacement, high cervical region; S83.91XD Sprain of unspecified site of right knee, subsequent encounter; S60.221D Contusion of right hand, subsequent encounter; S13.4XXD Sprain of ligaments of cervical spine, subsequent encounter; S43.402D Unspecified sprain of left shoulder joint, subsequent encounter; R20.9 Unspecified disturbances of skin sensation
CPT/HCPCS: 72141; 72148

== ENCOUNTER → 2017-12-05 | Outpatient (CLI) | payer OTHER ==
--- NOTE | 2017-12-05 15:27 | MR ---
EXAMINATION TYPE: MR shoulder LT wo con DATE OF EXAM: 12/05/2017 COMPARISON: NONE HISTORY: Left shoulder pain TECHNIQUE: Multiplanar, multisequence imaging of the left shoulder is performed without contrast. Mot ion artifact is present causing some limitation. FINDINGS: Rotator Cuff: There is fluid within the subdeltoid bursa and lesser degree some acromial bursa. This would suggest a rotator cuff tear or perforation. No supraspinatus tendon or muscle retraction is michael dent. Rotator cuff tendons appear normal position. There is increased signal near the distal anterior junction between the supraspinatus tendon and subscapularis tendon which may be a perforation. Acromioclavicular Joint: Mild hypertrophy. Significant downward spurring is not evident. Glenohumeral Joint: Intact. Mild articular surface thinning may be present. Labrum: The labrum appears grossly intact given limitation of non-arthrogram study. Biceps Tendon: The long head of biceps is in normal location within bicipital groove. Minimal fluid m ay be adjacent suggesting some mild tendinosis. Bone marrow signal: No focal abnormal marrow signal is appreciated. Other: Minimal joint effusion is likely present. IMPRESSION: 1. Probable rotator cuff tendon perforation, likely near the junction of the subscapularis supraspina tus tendon. No tendon or muscle retraction is evident. 2. Minimal joint effusion 3. Mild tendinosis long head biceps tendon
== END | disposition home or self-care (01) ==
LOC: RADMRIMAIN 07:08
PROVIDERS: ATTEND Emergency Medicine
DX: S43.402D Unspecified sprain of left shoulder joint, subsequent encounter (principal); M67.814 Other specified disorders of tendon, left shoulder; M79.604 Pain in right leg; S33.5XXD Sprain of ligaments of lumbar spine, subsequent encounter; S83.91XD Sprain of unspecified site of right knee, subsequent encounter; S60.221D Contusion of right hand, subsequent encounter; S13.4XXD Sprain of ligaments of cervical spine, subsequent encounter; R20.9 Unspecified disturbances of skin sensation

== ENCOUNTER 2017-12-08 20:38 | Observation (INO) | payer OTHER ==
[2017-12-08] MEDS ORDERED: RX INFO: IV CONTRAST WAS GIVEN 1 EACH MISC MISCELLANE PRN (20:55)
[2017-12-08] MEDS ORDERED: NITROGLYCERIN SL TABS 0.4 MG TAB SUBLINGUAL STA ×3 (20:55)
[2017-12-08] MEDS ORDERED: ASPIRIN 81 MG PO STA (20:55)
[2017-12-08] MEDS ORDERED: SODIUM CHLORIDE 0.9% 1,000 ML IV STA (20:55)
--- NOTE | 2017-12-08 20:59 | ED ---
General Adult HPI - General Chief complaint: Chest Pain Stated complaint: Chest pain Time Seen by Provider: 12/08/17 20:50 Source: patient, RN notes reviewed Mode of arrival: wheelchair Limitations: physical limitation - History of Present Illness Initial comments: Patient is a pleasant 52-year-old female presenting to the emergency department complaining of chest discomfort. Patient had a slip at work and has had back discomfort since that time. Patient states she also pulled some her chest muscles. Patient states chest discomfort has been very mild over the past month however is much worse today. Discomfort remained severe. Discomfort feels like pressure. Patient states she also has her back discomfort which is fairly chronic. Patient does take [place] for this. Patient states she is also expressing some abdominal discomfort. Patient does feel short of breath. No nausea or vomiting. No diaphoresis. No history of problems prior to this past month. - Related Data Home Medications Medication Instructions Recorded Confirmed Hydrocodone/Acetaminophen [[place] 1 tab PO QID PRN 11/06/17 12/08/17 10-325] Zolpidem [Ambien] 10 mg PO HS 11/06/17 12/08/17 Allergies Allergy/AdvReac Type Severity Reaction Status Date / Time No Known Allergies Allergy Verified 12/08/17 21:36 Review of Systems ROS Statement: Those systems with pertinent positive or pertinent negative responses have been documented in the HPI. ROS Other: All systems not noted in ROS Statement are negative. Constitutional: Denies: fever Eyes: Denies: eye pain ENT: Denies: ear pain Respiratory: Reports: dyspnea. Denies: cough Cardiovascular: Reports: chest pain Endocrine: Denies: fatigue Gastrointestinal: Reports: abdominal pain Genitourinary: Denies: dysuria Musculoskeletal: Reports: back pain Skin: Denies: rash Neurological: Denies: weakness Past Medical History Past Medical History: Hypertension, Osteoarthritis (OA) Additional Past Medical History / Comment(s): Arthritis bilateral legs, L ankle , pt states she was placed on HTN med last summer but took herself off. History of Any Multi-Drug Resistant Organisms: None Reported Past Surgical History: Orthopedic Surgery, Tonsillectomy Additional Past Surgical History / Comment(s): L ankle sx for arthritis. Past Anesthesia/Blood Transfusion Reactions: No Reported Reaction, Motion Sickness Past Psychological History: Depression Smoking Status: Former smoker Past Alcohol Use History: None Reported Past Drug Use History: None Reported - Past Family History Father Family Medical History: Dementia Mother Family Medical History: No Reported History Additional Family Medical History / Comment(s): Mother is healthy General Exam Limitations: physical limitation General appearance: alert, other (Patient does appear uncomfortable) Head exam: Present: atraumatic Eye exam: Present: normal appearance, PERRL ENT exam: Present: normal oropharynx Neck exam: Present: normal inspection Respiratory exam: Present: normal lung sounds bilaterally. Absent: chest wall tenderness Cardiovascular Exam: Present: regular rate, normal rhythm Expanded Peripheral pulses: 2+: Radial (R), Radial (L), Posterior Tibialis (R), Posterior Tibialis (L) GI/Abdominal exam: Present: soft. Absent: distended, tenderness, pulsatile mass Extremities exam: Present: normal inspection. Absent: pedal edema, calf tenderness Back exam: Present: vertebral tenderness (Mild tenderness T5-8 region.) Neurological exam: Present: alert. Absent: motor sensory deficit Psychiatric exam: Present: normal affect, normal mood Skin exam: Present: normal color Course Vital Signs 12/08/17 12/08/17 12/08/17 20:40 21:05 21:29 Temperature 97.0 F L Pulse Rate 68 72 68 Respiratory 22 20 20 Rate Blood Pressure 191/109 195/93 156/88 O2 Sat by Pulse 100 100 99 Oximetry 12/08/17 22:28 Temperature Pulse Rate 60 Respiratory 18 Rate Blood Pressure 168/88 O2 Sat by Pulse 99 Oximetry EKG Findings - EKG Comments: EKG Findings:: Normal sinus rhythm 64. KS 150. QRS 80. QT 402. QTC 414. Normal axis. Normal QRS. Nonspecific ST-T. Some motion artifact is present. Medical Decision Making - Medical Decision Making Patient reevaluated and resting comfortably in bed. Symptoms have improved however not resolved. No improvement with nitroglycerin. Patient updated on results and plan. Case was discussed in detail with practitioner Lucas, who will admit for Dr. Heiwtt, covering for Dr. Rahman. - Lab Data Result diagrams: 12/08/17 20:53 12/08/17 20:53 Lab Results 12/08/17 12/08/17 12/08/17 Range/Units 20:53 20:53 20:53 WBC 5.6 (3.8-10.6) k/uL RBC 4.53 (3.80-5.40) m/uL Hgb 14.1 (11.4-16.0) gm/dL Hct 41.1 (34.0-46.0) % MCV 90.7 (80.0-100.0) fL MCH 31.1 (25.0-35.0) pg MCHC 34.3 (31.0-37.0) g/dL RDW 13.4 (11.5-15.5) % Plt Count 220 (150-450) k/uL Neutrophils % 48 % Lymphocytes % 42 % Monocytes % 4 % Eosinophils % 3 % Basophils % 1 % Neutrophils # 2.7 (1.3-7.7) k/uL Lymphocytes # 2.3 (1.0-4.8) k/uL Monocytes # 0.2 (0-1.0) k/uL Eosinophils # 0.2 (0-0.7) k/uL Basophils # 0.0 (0-0.2) k/uL PT (9.0-12.0) sec INR (<1.2) APTT (22.0-30.0) sec Sodium 142 (137-145) mmol/L Potassium 3.9 (3.5-5.1) mmol/L Chloride 102 (98-107) mmol/L Carbon Dioxide 31 H (22-30) mmol/L Anion Gap 9 mmol/L BUN 17 (7-17) mg/dL Creatinine 0.80 (0.52-1.04) mg/dL Est GFR (CKD-EPI)AfAm >90 (>60 ml/min/1.73 sqM) Est GFR (CKD-EPI)NonAf 85 (>60 ml/min/1.73 sqM) Glucose 108 H (74-99) mg/dL Calcium 9.5 (8.4-10.2) mg/dL Magnesium 1.7 (1.6-2.3) mg/dL Total Bilirubin 0.3 (0.2-1.3) mg/dL AST 21 (14-36) U/L ALT 27 (9-52) U/L Alkaline Phosphatase 82 (38-126) U/L Total Creatine Kinase 81 (30-135) U/L CK-MB (CK-2) 1.1 (0.0-2.4) ng/mL CK-MB (CK-2) Rel Index 1.4 Troponin I <0.012 (0.000-0.034) ng/mL NT-Pro-B Natriuret Pep pg/mL Total Protein 7.2 (6.3-8.2) g/dL Albumin 4.2 (3.5-5.0) g/dL Amylase 95 (30-110) U/L Lipase 68 (23-300) U/L 12/08/17 12/08/17 Range/Units 20:53 20:53 WBC (3.8-10.6) k/uL RBC (3.80-5.40) m/uL Hgb (11.4-16.0) gm/dL Hct (34.0-46.0) % MCV (80.0-100.0) fL MCH (25.0-35.0) pg MCHC (31.0-37.0) g/dL RDW (11.5-15.5) % Plt Count (150-450) k/uL Neutrophils % % Lymphocytes % % Monocytes % % Eosinophils % % Basophils % % Neutrophils # (1.3-7.7) k/uL Lymphocytes # (1.0-4.8) k/uL Monocytes # (0-1.0) k/uL Eosinophils # (0-0.7) k/uL Basophils # (0-0.2) k/uL PT 9.8 (9.0-12.0) sec INR 1.0 (<1.2) APTT 25.7 (22.0-30.0) sec Sodium (137-145) mmol/L Potassium (3.5-5.1) mmol/L Chloride (98-107) mmol/L Carbon Dioxide (22-30) mmol/L Anion Gap mmol/L BUN (7-17) mg/dL Creatinine (0.52-1.04) mg/dL Est GFR (CKD-EPI)AfAm (>60 ml/min/1.73 sqM) Est GFR (CKD-EPI)NonAf (>60 ml/min/1.73 sqM) Glucose (74-99) mg/dL Calcium (8.4-10.2) mg/dL Magnesium (1.6-2.3) mg/dL Total Bilirubin (0.2-1.3) mg/dL AST (14-36) U/L ALT (9-52) U/L Alkaline Phosphatase (38-126) U/L Total Creatine Kinase (30-135) U/L CK-MB (CK-2) (0.0-2.4) ng/mL CK-MB (CK-2) Rel Index Troponin I (0.000-0.034) ng/mL NT-Pro-B Natriuret Pep 161 pg/mL Total Protein (6.3-8.2) g/dL Albumin (3.5-5.0) g/dL Amylase (30-110) U/L Lipase (23-300) U/L - Radiology Data Radiology results: image reviewed (CT angios of the chest abdomen and pelvis shows no acute abnormality.) Disposition Clinical Impression: Chest pain Disposition: ADMITTED IP TO THIS HOSP Referrals: Papa Shelton MD [Primary Care Provider] - 1-2 days Decision Time: 23:11
[2017-12-08 21:05] LABS: Basophils % (A) 1 %; Eosinophils # (A) 0.2 k/uL (0-0.7); Eosinophils % (A) 3 %; HCT 41.1 % (34.0-46.0); HGB 14.1 gm/dL (11.4-16.0); Lymphocytes # (A) 2.3 k/uL (1.0-4.8); Lymphocytes % (A) 42 %; MCH 31.1 pg (25.0-35.0); MCHC 34.3 g/dL (31.0-37.0); MCV 90.7 fL (80.0-100.0); Mean Platelet Volume 6.9; Monocytes # (A) 0.2 k/uL (0-1.0); Monocytes % (A) 4 %; Neutrophils # (A) 2.7 k/uL (1.3-7.7); Neutrophils % (A) 48 %; Platelet Count 220 k/uL (150-450); RBC 4.53 m/uL (3.80-5.40); RDW 13.4 % (11.5-15.5); WBC 5.6 k/uL (3.8-10.6)
[2017-12-08 21:14] LABS: ALT 27 U/L (9-52); AST 21 U/L (14-36); Albumin 4.2 g/dL (3.5-5.0); Alkaline Phosphatase 82 U/L (38-126); Amylase 95 U/L (30-110); Anion Gap 9 mmol/L; Blood Urea Nitrogen 17 mg/dL (7-17); Calcium 9.5 mg/dL (8.4-10.2); Carbon Dioxide 31 mmol/L (22-30); Chloride 102 mmol/L (98-107); Glucose 108 mg/dL (74-99); Lipase 68 U/L (23-300); Magnesium 1.7 mg/dL (1.6-2.3); Partial Thromboplastin Time 25.7 sec (22.0-30.0); Potassium 3.9 mmol/L (3.5-5.1); Prothrombin Time 9.8 sec (9.0-12.0); Sodium 142 mmol/L (137-145); Total Bilirubin 0.3 mg/dL (0.2-1.3); Total Protein 7.2 g/dL (6.3-8.2)
[2017-12-08 21:17] LABS: Creatine Kinase 81 U/L (30-135)
[2017-12-08 21:29] LABS: Creatine Kinase MB 1.1 ng/mL (0.0-2.4); Troponin I <0.012 ng/mL (0.000-0.034)
[2017-12-08] MEDS ORDERED: MORPHINE SULFATE/PF 10MG/10ML VL IVP STA (21:42)
[2017-12-08] MEDS ORDERED: MORPHINE SULFATE/PF 10MG/10ML VL ONE (21:44)
--- NOTE | 2017-12-08 22:11 | CT ---
EXAMINATION TYPE: CT angio thoracic/abd aorta, without contrast and with contrast and with 3-D Recons truction rendering. DATE OF EXAM: 12/08/2017 COMPARISON: NONE HISTORY: Epigastric to lower back pain with SOB CT DLP: 1634 mGycm. Automated Exposure Control for Dose Reduction was Utilized. CONTRAST: CT scan of the thorax, abdomen and pelvis is performed without and with IV Contrast, patien t injected with 100 mL of Omnipaque 350. 3-D reconstruction renderings. FINDINGS: LUNGS: The lungs are grossly clear, there is no concerning parenchymal mass or nodule identified. T here is no pleural effusion or pneumothorax seen. The tracheobronchial tree is patent. MEDIASTINUM: There are no greater than 1 cm hilar or mediastinal lymph nodes. No pericardial effusi on is seen. OTHER: No additional significant abnormality is seen. LIVER/GB: No significant abnormality is appreciated. PANCREAS: No significant abnormality is seen. SPLEEN: No significant abnormality is seen. ADRENALS: No significant abnormality is seen. KIDNEYS: No significant abnormality is seen. 3 cm left renal cyst is noted. BOWEL: No significant abnormality is seen. GENITAL ORGANS: No gross abnormality seen. LYMPH NODES: No greater than 1cm abdominal or pelvic lymph nodes are appreciated. OSSEOUS STRUCTURES: No significant abnormality is seen. OTHER: No significant additional abnormality is seen. IMPRESSION: No acute osseous fracture, abnormal fluid collection, or evidence of solid organ injury i n the thorax, abdomen, or pelvis.
[2017-12-08] MEDS ORDERED: ORPHENADRINE 30 MG/ML 2 ML VIAL IVP STA (23:11)
[2017-12-08] MEDS ORDERED: NITROGLYCERIN SL TABS 0.4 MG TAB SUBLINGUAL PRN (23:12)
[2017-12-09] MEDS ORDERED: hydrALAZINE HCL 20 MG/ML 1 ML VIAL IVP PRN (00:59)
[2017-12-09] MEDS ORDERED: cloNIDine HCL 0.1 MG TAB PO PRN (00:59)
[2017-12-09 01:04] VITALS: BMI 36.6
[2017-12-09] MEDS: HYDROcodone/APAP 10-325MG 1 EACH TAB PO PRN ×4 (01:18→20:08)
[2017-12-09] MEDS: ZOLPIDEM 10 MG TAB PO PRN ×2 (01:18→22:38)
[2017-12-09] MEDS: NITROGLYCERIN OINT 1 INCH/GM PACKET TOPICAL SCH ×2 (01:21→06:49)
[2017-12-09 03:52] LABS: Cholesterol 152 mg/dL (<200); HDL Cholesterol 76 mg/dL (40-60); LDL Cholesterol,Calculated 62 mg/dL (0-99); Triglycerides 70 mg/dL (<150)
[2017-12-09 03:58] LABS: Creatine Kinase 70 U/L (30-135)
[2017-12-09 04:12] LABS: Creatine Kinase MB 0.7 ng/mL (0.0-2.4); Troponin I <0.012 ng/mL (0.000-0.034)
--- NOTE | 2017-12-09 05:58 | HP ---
HISTORY AND PHYSICAL DATE OF SERVICE: 12/08/2017. CHIEF COMPLAINT: Chest pain. HISTORY OF PRESENT ILLNESS: This 52-year-old woman with a past medical history of multiple medical problems was recently admitted with low back pain. The patient also has some chest tightness, thought to be musculoskeletal. The patient had multilevel DJD in the lumbar spine. However, the patient is complaining of chest pain and back pain. The pain as well as chest pain was felt in the anterior part of the chest radiating to the back and patient is followed by Dr. Shelton in the outpatient setting. A thoracic aortic CT was done, which showed no acute abnormality. There is no history of any fever, rigors. No history of headache, loss of consciousness or seizures. PAST MEDICAL HISTORY: History of hypertension, DJD, history of tonsillectomy, history of depression. MEDICATIONS: Medications prior to admission include: 1. Lodine 400 mg t.i.d. 2. Ambien 10 mg q.h.s. 3. [place] 10 mg q.i.d. p.r.n. ALLERGIES: Allergies are none. FAMILY HISTORY: History of dementia. SOCIAL HISTORY: Previous history of smoking. No history of current smoking or alcohol intake. REVIEW OF SYSTEMS: ENT: No diminished hearing or diminished vision. CARDIOVASCULAR SYSTEM: As mentioned earlier. RESPIRATORY SYSTEM: As mentioned earlier. GI: No nausea. : No dysuria. NERVOUS SYSTEM: No numbness or weakness. ALLERGY/IMMUNOLOGY: No history of asthma. MUSCULOSKELETAL: As mentioned earlier. HEMATOLOGY/ONCOLOGY: No history of anemia. ENDOCRINE: No history of diabetes or hypothyroidism. CONSTITUTIONAL: As mentioned earlier. DERMATOLOGY: Negative. RHEUMATOLOGY: Negative. PSYCHIATRY: As mentioned earlier. PHYSICAL EXAMINATION: The patient is alert and oriented x3. Pulse is 54, blood pressure 155/85, respiration 18, temperature 97 degrees, pulse ox 99% on 2 L. HEENT: Conjunctivae normal. Oral mucosa moist. Neck is no jugular venous distention. No carotid bruit. No lymph node enlargement. CARDIOVASCULAR: S1 and S2 muffled. RESPIRATORY: Breath sounds diminished at the bases. No rhonchi, no crackles. ABDOMEN: Soft, nontender. No mass palpable. LEGS: No edema, no swelling. NERVOUS SYSTEM: Higher function as mentioned. Moves all 4 limbs. No focal motor or sensory deficit. LYMPHATICS: No lymphadenopathy of the neck, axillae or groin. SKIN: No ulcer, rash or bleeding. LABS: Labs are at this time shows CBC within normal limits. Glucose is 108. ASSESSMENT: 1. Chest pain possible unstable angina. 2. History of back pain, degenerative joint disease. 3. Hypertension. 4. History of degenerative joint disease. 5. History of depression. 6. Remote history of nicotine dependence. RECOMMENDATIONS AND DISCUSSION: Recommend to continue current medication and symptomatic treatment. Cardiology evaluation, possible stress test. Otherwise, guarded prognosis because of the multiple complex medical issues. Further recommendations to follow. Guarded prognosis. MMODL / IJN: [id number] /
--- NOTE | 2017-12-09 08:50 | P.CRDCN ---
History of Present Illness Consult date: 12/09/17 Consult reason: chest pain History of present illness: Mrs. Mobley is a pleasant 52-year-old -[place] female with no significant past medical history other than chronic tobacco abuse. She comes to the hospital complaining of chest and back pain. She states that she had a fall approximately 2 months ago which she injured her back. From time to time she gets pain across the chest radiating around from the back. This pain is associated with mild dizziness. The pain in the chest is reproducible and worse with inspiration. The pain is worse with movement of her torso. She denies associated shortness of breath, palpitations, nausea, vomiting or diaphoresis. EKG reveals sinus mechanism with nonspecific T-wave abnormality in lateral leads that is consistent with previous EKG. CT of the thoracic chest is negative for aortic dissection or pulmonary embolism. Laboratory data reviewed, cardiac enzymes negative 2, potassium 3.9, magnesium 1.7. She takes no cardiac medications. Review of Systems At the time of my exam: CONSTITUTIONAL: Denies fever. Denies chills. EYES: Denies blurred vision. Denies vision changes. Denies eye pain. EARS, NOSE, MOUTH & THROAT: Denies headache. Denies sore throat. Denies ear pain. CARDIOVASCULAR: Denies chest pain. Denies shortness of breath. Denies orthopnea. Denies PND. Denies palpitations. RESPIRATORY: Denies cough. GASTROINTESTINAL: Denies abdominal pain. Denies diarrhea. Denies constipation. Denies nausea. Denies vomiting. MUSCULOSKELETAL: Complains of pain to the upper and mid back as well as anterior chest wall. INTEGUMENTARY: Denies pruitis. Denies rash. NEUROLOGIC: Denies numbness. Denies tingling. Denies weakness. PSYCHIATRIC: Denies anxiety. Denies depression. ENDOCRINE: Denies fatigue. Denies weight change. Denies polydipsia. Denies polyurina. GENITOURINARY: Denies burning, hematuria or urgency with micturation. HEMATOLOGIC: Denies history of anemia. Denies bleeding. Past Medical History Past Medical History: Hypertension, Osteoarthritis (OA) Additional Past Medical History / Comment(s): Arthritis bilateral legs, L ankle , pt states she was placed on HTN med last summer but took herself off. History of Any Multi-Drug Resistant Organisms: None Reported Past Surgical History: Orthopedic Surgery, Tonsillectomy Additional Past Surgical History / Comment(s): L ankle sx for arthritis. Past Anesthesia/Blood Transfusion Reactions: No Reported Reaction, Motion Sickness Past Psychological History: Depression Additional Psychological History / Comment(s): Pt resides alone. She is currently using a cane. She drives. Smoking Status: Former smoker Past Alcohol Use History: None Reported Additional Past Alcohol Use History / Comment(s): Pt started smoking in 1983 and quit in 2015. Past Drug Use History: None Reported - Past Family History Father Family Medical History: Dementia Mother Family Medical History: No Reported History Additional Family Medical History / Comment(s): Mother is healthy Medications and Allergies Home Medications Medication Instructions Recorded Confirmed Type Hydrocodone/Acetaminophen [[place] 1 tab PO QID PRN 11/06/17 12/09/17 History 10-325] Zolpidem [Ambien] 10 mg PO HS 11/06/17 12/09/17 History Etodolac [Lodine] 400 mg PO TID 12/09/17 12/09/17 History Allergies Allergy/AdvReac Type Severity Reaction Status Date / Time No Known Allergies Allergy Verified 12/09/17 00:55 Physical Exam Vitals: Vital Signs Temp Pulse Pulse Resp BP BP Pulse Ox 12/09/17 07:54 97.9 F 61 18 129/78 98 12/09/17 04:00 68 16 12/09/17 03:59 98.1 F 67 16 134/81 97 12/09/17 02:18 18 12/09/17 00:40 97.4 F L 55 L 16 190/87 94 L 12/09/17 00:00 97.0 F L 52 L 17 156/89 98 12/08/17 23:42 54 L 18 155/85 99 12/08/17 22:28 60 18 168/88 99 12/08/17 21:29 68 20 156/88 99 12/08/17 21:05 72 20 195/93 100 12/08/17 20:40 97.0 F L 68 22 191/109 100 Intake and Output 12/08/17 12/09/17 12/09/17 22:59 06:59 14:59 Intake Total 0 Balance 0 Intake: Oral 0 Other: Voiding Method Toilet # Voids 1 Weight 90.718 kg 87.8 kg Blood pressure 129/78 heart rate 61 afebrile maintaining oxygen saturation on room air GENERAL: This is a 52-year-old -[place] in no apparent distress at the time of my examination. HEENT: Head is atraumatic, normocephalic. Pupils are equal, round. Sclerae anicteric. Conjunctivae are clear. Mucous membranes of the mouth are moist. Neck is supple. There is no jugular venous distention. No carotid bruit is heard. LUNGS: Clear to auscultation no wheezes, rales or rhonchi. Positive chest wall tenderness is noted on palpation or with deep breathing. HEART: Regular rate and rhythm without murmurs, rubs or gallops. S1 and S2 heard. ABDOMEN: Soft, nontender. Bowel sounds are heard. No organomegaly noted. EXTREMITIES: No evidence of peripheral edema and no calf tenderness noted. VASCULAR: Radial and dorsalis pedis pulses palpated, no evidence of clubbing. NEUROLOGIC: Patient is awake, alert and oriented x3. Results 12/08/17 20:53 12/08/17 20:53 Cardiac Enzymes 12/08/17 12/08/17 12/09/17 Range/Units 20:53 20:53 02:51 AST 21 (14-36) U/L CK-MB (CK-2) 1.1 0.7 (0.0-2.4) ng/mL Troponin I <0.012 <0.012 (0.000-0.034) ng/mL Coagulation 12/08/17 Range/Units 20:53 PT 9.8 (9.0-12.0) sec APTT 25.7 (22.0-30.0) sec Lipids 12/09/17 Range/Units 02:51 Triglycerides 70 (<150) mg/dL Cholesterol 152 (<200) mg/dL HDL Cholesterol 76 H (40-60) mg/dL CBC 12/08/17 Range/Units 20:53 WBC 5.6 (3.8-10.6) k/uL RBC 4.53 (3.80-5.40) m/uL Hgb 14.1 (11.4-16.0) gm/dL Hct 41.1 (34.0-46.0) % Plt Count 220 (150-450) k/uL Comprehensive Metabolic Panel 12/08/17 Range/Units 20:53 Sodium 142 (137-145) mmol/L Potassium 3.9 (3.5-5.1) mmol/L Chloride 102 (98-107) mmol/L Carbon Dioxide 31 H (22-30) mmol/L BUN 17 (7-17) mg/dL Creatinine 0.80 (0.52-1.04) mg/dL Glucose 108 H (74-99) mg/dL Calcium 9.5 (8.4-10.2) mg/dL AST 21 (14-36) U/L ALT 27 (9-52) U/L Alkaline Phosphatase 82 (38-126) U/L Total Protein 7.2 (6.3-8.2) g/dL Albumin 4.2 (3.5-5.0) g/dL Current Medications Generic Name Dose Route Start Last Admin Trade Name Freq PRN Reason Stop Dose Admin Hydrocodone Bitart/Acetaminophen 1 each 12/08/17 23:32 12/09/17 07:49 [place] 10 PO 1 each QID PRN Administration Pain Aspirin 325 mg 12/09/17 09:00 Aspirin PO DAILY [facility] Clonidine 0.1 mg 12/09/17 00:59 Catapres PO Q4HR PRN for sbp> 140 dbp >90 Hydralazine HCl 10 mg 12/09/17 00:59 Apresoline IVP Q4HR PRN sbp> 140, dbp> 90 if PO not pr Sodium Chloride 1,000 mls @ 75 mls/hr 12/08/17 20:55 12/08/17 21:01 Saline 0.9% IV 12/09/17 10:14 75 mls/hr .[id number] STA Administration Miscellaneous Information 1 each 12/08/17 20:55 12/08/17 21:29 Rx Info: Iv Contrast Was Given MISCELLANE 12/10/17 20:56 1 each DAILY PRN Administration Per Protocol Nitroglycerin 1 inch 12/09/17 00:00 12/09/17 06:49 Nitro-Bid Oint TOPICAL Not Given Q6HR [facility] Nitroglycerin 0.4 mg 12/08/17 23:12 Nitrostat SUBLINGUAL Q5M PRN Chest Pain Sodium Chloride 10 ml 12/09/17 09:00 Saline Flush IV BID [facility] Zolpidem Tartrate 10 mg 12/09/17 00:51 12/09/17 01:18 Ambien PO 10 mg HS PRN Administration insomnia Intake and Output 12/08/17 12/09/17 12/09/17 22:59 06:59 14:59 Intake Total 0 Balance 0 Intake: Oral 0 Other: Voiding Method Toilet # Voids 1 Weight 90.718 kg 87.8 kg 12/08/17 20:53 12/08/17 20:53 Assessment and Plan Assessment: ASSESSMENT 1. Pleuritic chest pain 2. Chronic back pain PLAN This pain is not indicative of cardiac etiology. Further evaluation possibly with relocation services specialist to evaluate back injury. Anti-inflammatory pain medication be given for her pleuritic pain. No cardiac workup indicated at this time. She has been advised to follow-up with Dr. Rabago for further outpatient evaluation once her orthopedic pain has been addressed. Nurse Practitioner note has been reviewed, I agree with a documented findings and plan of care. Patient was seen and examined.
[2017-12-09] MEDS ORDERED: ASPIRIN 325 MG TAB PO SCH (09:00)
[2017-12-09 10:09] LABS: Creatine Kinase 64 U/L (30-135)
[2017-12-09 10:16] LABS: Creatine Kinase MB 0.7 ng/mL (0.0-2.4)
[2017-12-09 10:22] LABS: Troponin I <0.012 ng/mL (0.000-0.034)
[2017-12-09] MEDS ORDERED: KETOROLAC 30 MG/ML 1 ML VIAL IVP STA (11:32)
--- NOTE | 2017-12-09 15:33 | XR ---
Thoracic spine HISTORY: Back pain 3 views of the thoracic spine No comparisons There are overlying cardiac leads. The patient is rotated. Multilevel spondylosis is present. Thoraci c vertebral bodies show preserved height, alignment, and bone mineralization. Disc spaces are maintai pati. IMPRESSION: Degenerative disc disease.
--- NOTE | 2017-12-09 16:15 | P.CON ---
Consult Note - . Consult date: 12/09/17 Assessment/Plan:: This is a 52-year-old female who fell about 4 weeks ago at work and had lower back pain that she still complains of. The patient was admitted to the hospital have to rule out angina. She is cleared by the cardiology service. Her lower back pain goes across her lower back and only twice it radiated down the legs associated with tingling however right now her pain is mostly felt axially in her lower back. The patient denies any bowel or bladder dysfunction except for constipation and she denies any weakness in the lower extremities. The patient has never had any injections on her back nor any physical therapy because this pain started only recently and she denies any history of chronic lower back pain. By physical exam she is alert oriented 3 in no apparent distress however she tells me that she is in severe pain. She was lying in her bed. Muscle strength exam of the lower extremities was normal for knee flexion and ankle flexion and extension and toe dorsiflexion bilaterally. Straight leg raising test negative bilaterally. Yasmani's test negative bilaterally. Internal and external rotation of the hip joints caused mild pain in the left hip. She has tenderness in the lumbar paravertebral musculature bilaterally. Her lumbar spine MRI showed mild degenerative changes, with no lumbar stenosis or compression of nerve roots. Impression and plan: Continue [place] for pain We will schedule the patient to have lumbar epidural steroid injection tomorrow morning. The patient should be nothing by mouth after midnight The subcu morning dose of heparin should be held The patient was reassured that most acute back pain episodes usually resolve spontaneously within 4-6 weeks. I thank you for the consultation.
--- NOTE | 2017-12-09 17:56 | PN ---
PROGRESS NOTE DATE OF SERVICE: 12/09/2017 This 52-year-old woman is admitted with chest pain and back pain and is being closely monitored. Cardiology recommended outpatient evaluation. No chest pain at this time. No fever. No shortness of breath. EXAM: Alert and oriented times three. Pulse 68, blood pressure 134/72, respiratory rate 17, temperature 98.1, pulse ox 98% room air. HEENT: Conjunctivae normal. Neck: No jugular venous distention. Cardiovascular: S1, S2 muffled. Respiratory: Breath sounds diminished in the bases. No rhonchi and no crackles. Abdomen soft and nontender. Central nervous system: No focal deficits. LABORATORY DATA: CBC within normal limits. Troponins are negative. ASSESSMENT: 1. Chest pain, rule out coronary artery disease, possibly musculoskeletal pain. 2. History of back pain/degenerative joint disease. 3. Hypertension. 4. History of degenerative joint disease. 5. History of depression. 6. Remote history of nicotine dependence. RECOMMENDATIONS AND DISCUSSION: Recommend to continue current medications, management and symptomatic treatment. Follow closely with cardiology. Orthopedic evaluation. Possible spinal injection. Guarded prognosis. Further recommendations to follow. MMODL / IJN: [id number] /
[2017-12-09] MEDS: KETOROLAC 30 MG/ML 1 ML VIAL IVP SCH ×2 (18:19→23:25)
[2017-12-10] MEDS: HYDROcodone/APAP 10-325MG 1 EACH TAB PO PRN ×3 (04:03→19:35)
[2017-12-10] MEDS: KETOROLAC 30 MG/ML 1 ML VIAL IVP SCH ×4 (05:53→23:46)
[2017-12-10 08:12] LABS: Basophils % (A) 0 %; Eosinophils # (A) 0.2 k/uL (0-0.7); Eosinophils % (A) 4 %; HCT 37.3 % (34.0-46.0); HGB 12.2 gm/dL (11.4-16.0); Lymphocytes # (A) 1.5 k/uL (1.0-4.8); Lymphocytes % (A) 42 %; MCH 29.8 pg (25.0-35.0); MCHC 32.7 g/dL (31.0-37.0); Mean Platelet Volume 7.3; Monocytes # (A) 0.3 k/uL (0-1.0); Monocytes % (A) 7 %; Neutrophils # (A) 1.6 k/uL (1.3-7.7); Neutrophils % (A) 43 %; Platelet Count 184 k/uL (150-450); RDW 13.5 % (11.5-15.5); WBC 3.6 k/uL (3.8-10.6)
[2017-12-10 08:26] LABS: Anion Gap 6 mmol/L; Blood Urea Nitrogen 14 mg/dL (7-17); Calcium 9.5 mg/dL (8.4-10.2); Carbon Dioxide 30 mmol/L (22-30); Chloride 103 mmol/L (98-107); Glucose 95 mg/dL (74-99); Potassium 4.3 mmol/L (3.5-5.1); Sodium 139 mmol/L (137-145)
--- NOTE | 2017-12-10 11:59 | P.PN ---
Progress Note - Text Progress Note Date: 12/10/17 This is 49 seizes on the wound the history of severe low back pain, patient was scheduled to have lumbar epidural steroid injections, but today before the procedure patient refused to sign the consent ,and she refused to have the procedure done, because she is concerned about, the possible complication, and patient will be managed medically ,as per her primary team, and she refused to have ,any interventional pain management.
--- NOTE | 2017-12-10 12:57 | P.CNOR ---
History of Present Illness - [facility] Consult date: 12/09/17 Requesting physician: Aiyana Ames Consult reason: back pain, neck pain, other (Left upper extremity radiculopathy) History of present illness: Patient is a very pleasant 52-year-old female who is seen at bedside for further evaluation and consultation was placed by Dr. Ames in medicine for significant low back pain. Patient states approximately 2 months ago in September 2017 while at work she went to take a step on a machine at which time she slipped. She was able to grab part of machine and avoid falling at that time. She denies specific injury at that time. She states approximately 2 days later started experiencing low back pain. A few days later she started to experience left upper extremity radiculopathy. She then began to experience some chest pain. She's been following with her primary care provider in the outpatient setting for further evaluation. An MRI of the cervical spine lumbar spine was taken on 11/27/2017. Since the fall she is also undergone computed tomography scan and x-ray of the lumbar spine. She states she has not been seen and evaluated by pain management. She states she presented to the hospital yesterday, 12/08/2017, after her symptoms became more debilitating. She was experiencing some chest pain at that time as well. She has been seen and examined by cardiology and who did not feel her symptoms were from a cardiac etiology. Patient states at the bedside her most significant symptom is severe low back pain. She states her pain is currently 12/10. She states she intermittently also experiences some pain that radiates over the left shoulder and down the left upper extremity towards the base of the fingers. She states she has numbness on the palmar side of her fingers. She denies any specific cervical pain. She is experiencing some mid thoracic back pain as well. She has significant pain of the lower lumbar spine. She states she is known to have some degenerative changes of bilateral knees which causes her some difficulty with ambulation. Prior to this slip at work, she states she has worked without difficulty and has not missed a day working in over 2 years. She states her current pain is debilitating. She denies specific upper extremity or lower extremity weakness bilaterally. She denies any right-sided upper extremity or lower extremity radiculopathy. She states she did have one episode of radiculopathy in the left lower extremity in which she had pain radiating down the posterior thigh, to the calf and towards her heel. X-rays of the right knee were taken on 10/31/2017 which did show evidence of moderate to advanced degenerative changes. Patient also states she has previously taken Harmony as prescribed without significant relief of her symptoms. Patient states her low back pain is her most significant symptom. She would like to avoid surgical intervention. Past Medical History Past Medical History: Hypertension, Osteoarthritis (OA) Additional Past Medical History / Comment(s): Arthritis bilateral legs, L ankle , pt states she was placed on HTN med last summer but took herself off. History of Any Multi-Drug Resistant Organisms: None Reported Past Surgical History: Orthopedic Surgery, Tonsillectomy Additional Past Surgical History / Comment(s): L ankle sx for arthritis. Past Anesthesia/Blood Transfusion Reactions: No Reported Reaction, Motion Sickness Past Psychological History: Depression Additional Psychological History / Comment(s): Pt resides alone. She is currently using a cane. She drives. Smoking Status: Former smoker Past Alcohol Use History: None Reported Additional Past Alcohol Use History / Comment(s): Pt started smoking in 1983 and quit in 2015. Past Drug Use History: None Reported - Past Family History Father Family Medical History: Dementia Mother Family Medical History: No Reported History Additional Family Medical History / Comment(s): Mother is healthy Medications and Allergies Home Medications Medication Instructions Recorded Confirmed Type Hydrocodone/Acetaminophen [Harmony 1 tab PO QID PRN 11/06/17 12/09/17 History 10-325] Zolpidem [Ambien] 10 mg PO HS 11/06/17 12/09/17 History Etodolac [Lodine] 400 mg PO TID 12/09/17 12/09/17 History Allergies Allergy/AdvReac Type Severity Reaction Status Date / Time No Known Allergies Allergy Verified 12/09/17 00:55 Physical Examination Physical exam: Patient is awake, alert, and oriented 3 Vital signs stable Good chest excursion with deep inspiration and expiration No pain with palpation of the cervical spine Full range of motion of the cervical spine with adequate flexion, extension, and bilateral rotation [employer]r strength, thumb strength, interosseous strength, biceps strength, triceps strength, and shoulder strength positive sustained bilaterally No upper extremity hyperreflexia bilaterally Hoffmans sign negative upper extremity bilaterally Examination of thoracolumbar spine reveals skin is intact with no abrasions, lacerations, or bruises; no erythema, purulence or signs of infection Mild pain with palpation of the mid thoracic spine along the midline Significant pain with palpation along the midline of the lower lumbar spine at the approximate multiple cecal junction Dorsiflexion, plantarflexion, and extensor hallucis longus positive sustained bilaterally Lower extremity strength 5/5 bilaterally No lower extremity hyperreflexia bilaterally Straight leg test negative bilateral lower extremities No signs or symptoms of DVT; no calf pain No pain with internal and external rotation of the hips bilaterally Neurovascularly intact Results Pertinent studies: MRI of the cervical spine lumbar spine taken on 11/27/2017: C3-C4 left paracentral disc protrusion resulting in left neural foraminal stenosis; C6-7 disc bulging; C2-3, C4-5, and C6-7 disc desiccation; no evidence of cervical fracture, mass, or significant central spinal canal stenosis; L2-3 disc bulging ; L4-5 disc bulging and disc desiccation; no evidence of lumbar fracture, lumbar stenosis, or paravertebral masses; evidence of left renal cortical cyst CT lumbar spine taken on 11/08/2017: Mild multilevel degenerative disc disease; L4-5 disc bulging; no evidence of acute body compression fracture; no evidence of spinal canal stenosis X-ray lumbar spine taken on 11/06/2017: Overall alignment appears barely maintain; no evidence of vertebral body compression fracture Thoracic aorta CT taken on 12/08/2017: No evidence of osseous fracture; no evidence of abnormal fluid collection; no evidence of solid organ injury in the thorax, abdomen, or pelvis - Labs Labs: Abnormal Lab Results - Last 24 Hours (Table) 12/08/17 12/09/17 Range/Units 20:53 02:51 Carbon Dioxide 31 H (22-30) mmol/L Glucose 108 H (74-99) mg/dL HDL Cholesterol 76 H (40-60) mg/dL H & H 12/08/17 Range/Units 20:53 Hgb 14.1 (11.4-16.0) gm/dL Hct 41.1 (34.0-46.0) % Coagulation 12/08/17 Range/Units 20:53 INR 1.0 (<1.2) Result Diagrams: 12/10/17 06:57 12/10/17 06:57 Assessment and Plan Assessment: Assessment: Significant debilitating low back pain Thoracic back pain Left upper extremity radiculopathy C3-4 left paracentral disc protrusion resulting in left foraminal stenosis C6-7 disc bulge Mild degenerative changes cervical spine L2-3 disc bulge L4-5 disc bulge Mild degenerative changes of the lumbar spine Chest pain without cardiac etiology per cardiology (1) Severe low back pain Current Visit: Yes Status: Acute Code(s): M54.5 - LOW BACK PAIN SNOMED Code(s): 647524855 (2) Radiculopathy affecting upper extremity Current Visit: Yes Status: Acute Code(s): M54.10 - RADICULOPATHY, SITE UNSPECIFIED SNOMED Code(s): 85842349 (3) Thoracic back pain Current Visit: Yes Status: Acute Code(s): M54.6 - PAIN IN THORACIC SPINE SNOMED Code(s): 743263218 (4) Herniated nucleus pulposus, C3-4 left Current Visit: Yes Status: Acute Code(s): M50.21 - OTHER CERVICAL DISC DISPLACEMENT, HIGH CERVICAL REGION SNOMED Code(s): 33569279 (5) Chest pain Current Visit: Yes Status: Acute Code(s): R07.9 - CHEST PAIN, UNSPECIFIED SNOMED Code(s): 04165207 Plan: Plan: 1. After physical examination the patient, discussion with the patient, and reviewing of imaging, we will currently plan to continue with conservative treatment in regards to her cervical and lumbar spines. She does have some degenerative changes of the cervical and lumbar spine as well as a C3-4 left paracentral disc protrusion resulting in left neural foraminal stenosis. Her most significant symptom is debilitating low back pain. Imaging does not show obvious signs of fracture, significant disc herniation, or evidence of stenosis of the lumbar spine. She states her left upper extremity radiculopathy symptoms are intermittent. The severity of her symptoms in terms of her low back pain do not appear to correlate well with her findings on imaging. We will plan to consult with pain management for further evaluation and to discuss the possibility of further treatment including possibility of injections. At this time, we are not currently planning for acute surgical intervention in regards to her cervical or lumbar spines as it does not currently appear surgical intervention would provide significant relief of her symptoms. She does have some left upper extremity radiculopathy symptoms but these do not correlate with her left paracentral disc protrusion at C3-4. She is also experienced some mid thoracic back pain. I do not see any imaging of her thoracic spine. We'll plan to obtain x-rays of thoracic spine to rule out vertebral body compression fracture or other acute findings. No evidence of acute fractures were found within the cervical and lumbar spine. We will plan to order x-rays of the thoracic spine and will review this imaging once completed. We did discuss if she were found to have fracture at thoracic spine we will most likely plan to proceed forward with bracing. We will follow-up with the plan of care following thoracic x-ray results. We are not currently planning for further treatment in regards to her cervical spine or lumbar spine as we do not feel further treatment would provide significant improvement of her symptoms. Continue pain control with medications as previously. 2. Medicine to continue following the patient 3. Consultation has been placed with pain management to discuss possible treatment options including the possibility of injections Time with Patient: Less than 30
--- NOTE | 2017-12-10 14:27 | P.PN ---
Progress Note - Text Progress Note Date: 12/10/17 Patient is seen and examined at the bedside this morning and has also been seen and examined by Dr. Rice as well for further evaluation for her debilitating low back pain, thoracic back pain, left upper extremity radiculopathy. Patient states her pain has been better controlled through IV pain medications. She was seen and examined yesterday by pain management who was scheduling to proceed forward with an epidural injection today. Patient states at the bedside she has some concerns about the procedure and is not sure she is ready to proceed forward with the injection. She has been able to ambulate to the shower today. She continues to state her symptoms are significant. She states again at the bedside her most significant symptom is severe low back pain. She continues to intermittently experience left upper extremity radiculopathy with pain radiating over the left shoulder and down the left upper extremity towards the base of the fingers. She is currently denying any cervical pain. She continues to have some thoracic back pain. X-rays of the thoracic spine were taken yesterday without evidence of significant acute findings. There were no evidence of vertebral body compression fractures. She denies any right upper extremity or right lower extremity radiculopathy or weakness. She did previously have an episode of left lower extremity radiculopathy. She denies specific left upper extremity or lower extremity weakness. Patient states she is unsure what plan of care she would like to proceed forward with but is unsure about injections through pain management and states she does not wish to have any surgical intervention if there are indications to do so. She is not currently complaining of chest pain at the bedside. 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, interosseous strength, biceps strength, triceps strength, and shoulder strength positive sustained bilaterally Dorsiflexion, plantarflexion, and extensor hallucis longus positive sustained bilaterally Lower extremity strength 5/5 bilaterally No lower extremity hyperreflexia bilaterally Straight leg test negative bilateral lower extremities No signs or symptoms of DVT; no calf pain No pain with internal and external rotation of the hips bilaterally Neurovascularly intact Pertinent studies: X-rays thoracic spine taken on 12/09/2017: No evidence of vertebral body compression fracture; spondylosis present; multilevel degenerative disc disease midthoracic spine; evidence of cardiac leads MRI of the cervical spine lumbar spine taken on 11/27/2017: C3-C4 left paracentral disc protrusion resulting in left neural foraminal stenosis; C6-7 disc bulging; C2-3, C4-5, and C6-7 disc desiccation; no evidence of cervical fracture, mass, or significant central spinal canal stenosis; L2-3 disc bulging ; L4-5 disc bulging and disc desiccation; no evidence of lumbar fracture, lumbar stenosis, or paravertebral masses; evidence of left renal cortical cyst CT lumbar spine taken on 11/08/2017: Mild multilevel degenerative disc disease; L4-5 disc bulging; no evidence of acute body compression fracture; no evidence of spinal canal stenosis X-ray lumbar spine taken on 11/06/2017: Overall alignment appears barely maintain; no evidence of vertebral body compression fracture Thoracic aorta CT taken on 12/08/2017: No evidence of osseous fracture; no evidence of abnormal fluid collection; no evidence of solid organ injury in the thorax, abdomen, or pelvis Assessment: Significant debilitating low back pain Thoracic back pain Left upper extremity radiculopathy C3-4 left paracentral disc protrusion resulting in left foraminal stenosis C6-7 disc bulge Mild degenerative changes cervical spine L2-3 disc bulge L4-5 disc bulge Mild degenerative changes of the lumbar spine Thoracic degenerative disc disease and spondylosis Chest pain without cardiac etiology per cardiology Plan: 1. After physical examination the patient, discussion with the patient, reviewing of imaging, and further discussion with Dr. Garfield Rice, we will currently plan to continue with conservative treatment in regards to her cervical, lumbar, and thoracic spines. She does have some degenerative changes of the cervical and lumbar spine as well as a C3-4 left paracentral disc protrusion resulting in left neural foraminal stenosis. She experiences some intermittent left upper extremity radiculopathy which are intermittent. Her most significant symptom is debilitating low back pain. Imaging does not show obvious signs of fracture, significant disc herniation, or evidence of stenosis of the lumbar spine. The severity of her symptoms in terms of her low back pain do not appear to correlate well with her findings on imaging. X-rays of thoracic spine did not show evidence of fracture or significant findings. At this time, we are not currently planning for acute surgical intervention in regards to her cervical, thoracic, or lumbar spines as it does not currently appear surgical intervention would provide significant relief of her symptoms. Patient currently would like to refrain from proceeding forward with injections through pain management. Patient may continue with pain control with medications as previously. We will plan to order Solu-Medrol 60 mg IV every 12 hours today to see if this will help provide some relief of her symptoms. We will plan to discontinue this medication at 11:59 PM on 12/11/2017. She may ambulate and participate in activities tolerance. At this time, we will plan to have the patient follow-up on an as-needed basis in the outpatient setting. 2. Medicine to continue following the patient 3. Patient has been discussed in detail with Dr. Garfield Rice and he agrees with this plan
[2017-12-10] MEDS ORDERED: TEMAZEPAM 15 MG CAP PO PRN (14:34)
--- NOTE | 2017-12-10 16:39 | PN ---
PROGRESS NOTE DATE OF SERVICE: 12/10/2017 This 52-year-old woman who was admitted with chest pain and back pain was evaluated by Cardiology. Cardiology recommended outpatient followup. Patient also had back pain. Back injection was recommended by Dr. Appiah, but the patient refused injections this morning. Orthopedics is initiating IV steroids. No chest pain. No palpitations. On exam, alert and oriented x3. Pulse 66, blood pressure 126/85, respiration 18, temperature 98.4, pulse ox 99% on room air. HEENT: Conjunctivae normal. NECK: No jugular venous distention. CARDIOVASCULAR SYSTEM: S1, S2 muffled. RESPIRATORY SYSTEM: Breath sounds diminished at the bases. No rhonchi. No crackles. ABDOMEN: Soft, non-tender. LEGS: No edema. No swelling. EXAMINATION OF THE BACK: Some tenderness. NERVOUS SYSTEM: No focal deficit. LABS: CBC within normal limits. BMP within normal limits. ASSESSMENT: 1. Chest pain. Rule out coronary artery disease. Possibly musculoskeletal pain. Myocardial infarction ruled out. 2. Back pain, possibly degenerative joint disease. 3. Hypertension. 4. History of degenerative joint disease. 5. History of depression. 6. Remote history of nicotine dependence. RECOMMENDATIONS AND DISCUSSION: In this 52-year-old woman who presented with multiple complex medical issues, we will monitor the patient closely, continue the current medications, continue with symptomatic treatment. Otherwise, at this time I would recommend continuing with IV steroids. Monitor blood sugars closely. Guarded prognosis. Further recommendations to follow. MMODL / IJN: [id number] /
[2017-12-10] MEDS: INSULIN ASPART 100 UNIT/ML 1 ML 10 ML VIAL SQ SCH ×2 (18:06→19:51)
[2017-12-10] MEDS ORDERED: DOCUSATE 100 MG CAP PO PRN (19:46)
[2017-12-10 19:54] LABS: Glucose,Whole Blood 106 mg/dL (75-99)
[2017-12-10] MEDS: methylPREDNISolone SOD SUCCI 125 MG/2 ML VIAL IV SCH (20:21)
[2017-12-10 22:16] LABS: Hemoglobin A1C 5.3 % (4.0-6.0)
[2017-12-10] MEDS: ZOLPIDEM 10 MG TAB PO PRN (22:26)
[2017-12-10 23:27] VITALS: RESP 16
[2017-12-11] MEDS: HYDROcodone/APAP 10-325MG 1 EACH TAB PO PRN ×2 (03:07→08:54)
[2017-12-11] MEDS: KETOROLAC 30 MG/ML 1 ML VIAL IVP SCH ×2 (05:42→14:29)
[2017-12-11 06:39] LABS: Glucose,Whole Blood 143 mg/dL (75-99)
[2017-12-11] MEDS ORDERED: PANTOPRAZOLE 40 MG TABLET PO SCH (07:30)
[2017-12-11 07:49] VITALS: BP 129/78; PULSE 79; TEMP 98
[2017-12-11] MEDS: INSULIN ASPART 100 UNIT/ML 1 ML 10 ML VIAL SQ SCH ×2 (08:42→14:29)
[2017-12-11] MEDS: methylPREDNISolone SOD SUCCI 125 MG/2 ML VIAL IV SCH ×2 (08:54→11:31)
[2017-12-11 12:11] LABS: Glucose,Whole Blood 100 mg/dL (75-99)
--- NOTE | 2017-12-11 23:37 | DS ---
DISCHARGE SUMMARY FINAL DIAGNOSES: 1. Chest pain, possibly musculoskeletal. Myocardial infarction ruled out. Rule out coronary artery disease. 2. Back pain, possibly degenerative joint disease. 3. Hypertension. 4. History of degenerative joint disease. 5. History of depression. 6. Remote history of nicotine dependence. DISCHARGE DISPOSITION: The patient will be discharged in stable condition with guarded prognosis. Discharge cleared by multiple consultants, including Orthopedics as well as Cardiology. HISTORY OF PRESENT ILLNESS: This 52-year-old woman with a past medical history of multiple medical problems was admitted with chest and back pain. Myocardial infarction was ruled out. Cardiology recommended outpatient followup. For the back, Anesthesia recommended pain injection, and patient refused. Orthopedics saw the patient and recommended outpatient followup. On exam, vitals are stable. CARDIOVASCULAR SYSTEM: S1, S2 muffled. ABDOMEN: Soft. NERVOUS SYSTEM: No focal deficit. DISCHARGE ADVICE AND MEDICATIONS: 1. Diet is cardiac. 2. Activity limited until followup. 3. Follow up with Dr. Shelton in 2-3 days. 4. Follow up with Orthopedics as well as Cardiology and Anesthesia. Pain management as mentioned earlier. 5. Lodine 400 mg t.i.d. 6. Hydrocodone 1 tablet p.o. q.i.d. p.r.n. 7. Prednisone taper: 40 mg daily for 2 days; 30 mg daily for 2 days; 20 mg daily for 2 days; 10 mg daily for 2 days. 8. Ambien 10 mg at bedtime. Possible outpatient stress test. MMODL / IJN: [id number] /
== END 2017-12-11 15:15 | disposition home or self-care (01) ==
LOC: EC 20:38 → 3OBS 23:12
PROVIDERS: ADMIT Internal Medicine; ATTEND Internal Medicine
DX: R07.89 Other chest pain (principal); M54.5 Low back pain; M54.6 Pain in thoracic spine; Z91.81 History of falling; R06.02 Shortness of breath; R42 Dizziness and giddiness; R07.81 Pleurodynia; G89.29 Other chronic pain; M54.10 Radiculopathy, site unspecified; M50.21 Other cervical disc displacement, high cervical region; M48.02 Spinal stenosis, cervical region; G31.89 Other specified degenerative diseases of nervous system; Z53.20 Procedure and treatment not carried out because of patient's decision for unspecified reasons; I10 Essential (primary) hypertension; F32.9 Major depressive disorder, single episode, unspecified; M19.90 Unspecified osteoarthritis, unspecified site; M19.072 Primary osteoarthritis, left ankle and foot; K59.00 Constipation, unspecified; T50.996A Underdosing of other drugs, medicaments and biological substances, initial encounter; Z87.891 Personal history of nicotine dependence; Z79.899 Other long term (current) drug therapy; Z81.8 Family history of other mental and behavioral disorders; M47.816 Spondylosis without myelopathy or radiculopathy, lumbar region
CPT/HCPCS: 99285 ×2; 96361 ×7; 96374 ×2; 96375 ×4; 96376 ×3; 36415; 93005; 83880; 80061; 80053; 80048; 85652; 82150; 82550 ×2; 82553 ×2; 83690; 83735; 84484 ×2; 85025 ×2; 85610; 85730; 86140; 83036; 72072; 75635; 71275; G0378 ×4; J2360; J2930; Q9967; J1885 ×3; J2270

== ENCOUNTER 2017-12-23 11:57 | Emergency (ER) | payer OTHER ==
--- NOTE | 2017-12-23 12:20 | ED ---
General Adult HPI - General Chief complaint: Neck Pain/Injury Stated complaint: neck & back pain Time Seen by Provider: 12/23/17 12:07 Source: patient Mode of arrival: ambulatory Limitations: no limitations - History of Present Illness Initial comments: Rahat Mobley is a 52 yo presents to the emergency department for evaluation of pain in her right-sided neck and back. Patient reports that on October 30 she had a slip at work in which she believes she cause muscle strain to her neck , back and shoulders. She's been evaluated in our emergency department and referred to [facility] for further evaluation. Patient has been unable to follow-up with her primary care physician, physical therapy, orthopedic surgery or neurosurgery due to complications with [facility] She reports that she has previously evaluated in the emergency department prescribed an anti- inflammatory and steroids. She reports that this controlled her pain quite well for a number of weeks, however for the past few days she has been out of both her oral anti-inflammatory as well as oral steroids. She states that she has not been taking any [id number] anti-inflammatories or other pain meds. She reports that she feels as though her muscles are spasming and she is experiencing significant discomfort. She denies any new injury. She denies any new symptoms. She denies any gait instability or weakness in her arms and legs. She reports feeling as though her muscles are very tight, her symptoms improved with ice but worsened with any type of activity. Patient reports she has been referred to neurosurgery and will be seeing a neurosurgeon this Friday for evaluation of chronic disc disease at the C6 and C7 level. However due to [facility]s issues she has not followed up with any other specialist after this injury. - Related Data Home Medications Medication Instructions Recorded Confirmed Hydrocodone/Acetaminophen [[place] 1 tab PO QID PRN 11/06/17 12/09/17 10-325] Zolpidem [Ambien] 10 mg PO HS 11/06/17 12/09/17 Etodolac [Lodine] 400 mg PO TID 12/09/17 12/09/17 Previous Rx's Medication Instructions Recorded predniSONE 10 mg PO DIRECTED #20 tab 12/11/17 Etodolac [Lodine] 400 mg PO TID #30 tablet 12/23/17 predniSONE 10 mg PO DAILY 10 Days #10 tab 12/23/17 Allergies Allergy/AdvReac Type Severity Reaction Status Date / Time No Known Allergies Allergy Verified 12/23/17 12:02 Review of Systems ROS Statement: Those systems with pertinent positive or pertinent negative responses have been documented in the HPI. ROS Other: All systems not noted in ROS Statement are negative. Past Medical History Past Medical History: Hypertension, Osteoarthritis (OA) Additional Past Medical History / Comment(s): Arthritis bilateral legs, L ankle , pt states she was placed on HTN med last summer but took herself off. History of Any Multi-Drug Resistant Organisms: None Reported Past Surgical History: Orthopedic Surgery, Tonsillectomy Additional Past Surgical History / Comment(s): L ankle sx for arthritis. Past Anesthesia/Blood Transfusion Reactions: No Reported Reaction, Motion Sickness Past Psychological History: Depression Smoking Status: Former smoker Past Alcohol Use History: None Reported Past Drug Use History: None Reported - Past Family History Father Family Medical History: Dementia Mother Family Medical History: No Reported History Additional Family Medical History / Comment(s): Mother is healthy General Exam Limitations: no limitations General appearance: alert, in no apparent distress Head exam: Present: atraumatic, normocephalic, normal inspection Eye exam: Present: normal appearance, PERRL ENT exam: Present: normal exam Neck exam: Present: normal inspection, tenderness, full ROM, other (Noted to have muscle hypertonicity worse on the right side of the left, full range of motion of the neck, no midline cervical spine tenderness, no focal neurologic deficits). Absent: meningismus, lymphadenopathy, thyromegaly Respiratory exam: Absent: respiratory distress Cardiovascular Exam: Present: regular rate GI/Abdominal exam: Present: soft. Absent: distended Rectal exam: Present: deferred Extremities exam: Present: normal inspection, other. Absent: pedal edema Back exam: Present: normal inspection (Noted to have paraspinal muscle hypertonicity, no midline spinal tenderness), full ROM, muscle spasm. Absent: CVA tenderness (R), CVA tenderness (L), vertebral tenderness, rash noted Neurological exam: Present: alert, oriented X3, CN II-XII intact. Absent: motor sensory deficit (Normal strength in upper and lower extremities) Psychiatric exam: Present: normal affect, normal mood Skin exam: Present: warm, dry, intact Course Vital Signs 04/03/18 12:02 Temperature 97.1 F L Pulse Rate 68 Respiratory 24 Rate Blood Pressure 209/93 O2 Sat by Pulse 100 Oximetry Medical Decision Making - Medical Decision Making She was seen and evaluated history was obtained from the patient and review of medical record With a musculoskeletal injury nearly 8 weeks ago, with persistent muscle spasm, has been unable to follow-up with primary care, physical therapy, orthopedics or neurosurgery secondary to insurance a workman comp issues Patient's pain has been adequately controlled with oral NSAIDs and steroids, she is currently out of these medications and requesting refills Patient denies any new symptoms, any weaknesses, any new paresthesias though 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 At this time I don't feel there is any indication for further imaging or evaluation. Will treat the patient with IM Toradol as well as Solu-Medrol and will prescribe oral anti- inflammatories and a short course of steroids. Patient is to follow up with neurosurgery as scheduled this Friday. Patient was advised to return to the emergency department for any acute worsening of her symptoms, development of new or concerning symptoms specifically any weakness or paresthesias or reevaluation of any new injuries. All questions pertaining care were answered best my ability patient was discharged home in stable condition. Disposition Clinical Impression: Strain of neck muscle, Disc disorder of cervical region Disposition: HOME SELF-CARE Condition: Good Instructions: Cervical Strain (ED) Prescriptions: Etodolac [Lodine] 400 mg PO TID #30 tablet predniSONE 10 mg PO DAILY 10 Days #10 tab Referrals: Papa Shelton MD [Primary Care Provider] - 1-2 days Time of Disposition: 12:30
[2017-12-23] MEDS ORDERED: KETOROLAC 30 MG/ML 1 ML VIAL IM STA (12:27)
[2017-12-23] MEDS ORDERED: methylPREDNISolone SOD SUCCI 125 MG/2 ML VIAL IM ONE (12:27)
[2017-12-23 13:19] VITALS: BP 168/78; PULSE 89; RESP 20; TEMP 97.8
== END 2017-12-23 13:08 | disposition home or self-care (01) ==
LOC: EC 11:57
DX: S16.1XXA Strain of muscle, fascia and tendon at neck level, initial encounter (principal); M50.923 Unspecified cervical disc disorder at C6-C7 level; M19.072 Primary osteoarthritis, left ankle and foot; F32.9 Major depressive disorder, single episode, unspecified; Z87.891 Personal history of nicotine dependence; Z79.1 Long term (current) use of non-steroidal anti-inflammatories (NSAID); Z79.899 Other long term (current) drug therapy; W01.0XXA Fall on same level from slipping, tripping and stumbling without subsequent striking against object, initial encounter; Y92.69 Other specified industrial and construction area as the place of occurrence of the external cause; Y99.0 Civilian activity done for income or pay
CPT/HCPCS: 99283; 96372 ×2; J2930; J1885

== ENCOUNTER → 2018-11-09 | Outpatient (CLI) | payer OTHER ==
[2018-10-15 17:11] VITALS: BMI 40.6
[2018-11-09 13:46] VITALS: BP 151/74; PULSE 55; RESP 16
--- NOTE | 2018-11-09 14:00 | P.PN ---
Subjective Progress Note Date: 11/09/18 Merissa is a 53-year-old female presents today for follow-up. 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 She reports she had an injury at work. At time she had multiple imaging studies done for her neck and her lumbar spine. There is minimal changes on her MRIs of her lumbar and cervical spine. There is a minimal changes of her left shoulder as well. Today with pain all over her body. She reports that she drove 2 hours to get here. She planes of neck pain going into her left shoulder and into her arms. She also describes pain in her lumbar spine into her lower legs. She describes pain and weakness throughout her body. She reports she cannot move her left arm very much because of her pain. She is seen her primary care physician and was referred her here. She denies any bowel or bladder incontinence. Objective - Vital Signs Vital signs: Vital Signs Temp Pulse 55 L 11/09/18 13:34 Resp 16 11/09/18 13:34 BP 151/74 11/09/18 13:34 Pulse Ox - Exam General: Awake and alert oriented 3 no distress Respiratory exam: No audible wheezing no accessory muscle usage Cardiovascular exam: regular rate, palpable bilateral pulses, no lower extremity edema Abdominal exam: No distention nontender to palpation Cervical spine: Normal alignment, very limited range of motion of cervical spine. Unable to test the Spurling's test she is unable to tell her head back. Lumbar spine: Loss of lumbar lordosis, normal alignment, tender to palpation over bilateral paraspinal muscles, facet loading is positive bilaterally. Straight leg raise is negative. Sacroiliac joints: Nontender to palpation, MEKHI is negative, [place] negative Neuro exam: Normal sensation in bilateral upper extremities, deep tendon reflexes are 2+ bilateral upper extremities. Normal sensation in bilateral lower extremities. Deep tendon reflexes are 2+ in lower extremities. She has subjective weakness and bilateral upper and lower extremities. Jaleel sign is positive. Psych exam: Cooperative, appropriate mood Assessment and Plan Assessment: Neck pain Back pain Shoulder pain Plan: Patient to follow up with us when necessary. I've given her a prescription and referral to see orthopedic surgeon. She is from left-sided states advised to go to the [email or web address] which is closer to her house. Advise her she should see a surgeon who evaluated her and potentially do injections and for continuity of care will follow-up with her.
== END ==
LOC: PNWHC3 13:24
PROVIDERS: ATTEND Hospitalist
DX: M54.2 Cervicalgia (principal); M54.5 Low back pain; M25.519 Pain in unspecified shoulder
CPT/HCPCS: 99211

== ENCOUNTER → 2020-08-07 | Outpatient (CLI) | payer MEDICARE, OTHER ==
--- NOTE | 2020-08-07 11:32 | MR ---
EXAMINATION TYPE: MR lumbar spine wo con DATE OF EXAM: 08/07/2020 COMPARISON: MR lumbar spine 11/27/2017 HISTORY: Low back pain, Fall TECHNIQUE: Multiplanar, multisequence images of the lumbar spine were acquired. L1-L2: Normal disc appearance without desiccation. No herniation, protrusion or disc bulging. Facet arthropathy changes present. Foramina are patent bilaterally. L2-L3: Normal disc height with mild disc desiccation. Mild posterior disc bulge is stable Facet arthr opathy changes present. Foramina are patent bilaterally. L3-L4: Normal disc appearance without desiccation. No herniation, protrusion or disc bulging. Facet arthropathy changes present. Foramina are patent bilaterally. L4-L5: Normal disc height with mild disc desiccation. No herniation, protrusion or disc bulging. Fac et arthropathy changes are present. Foramina are patent bilaterally. L5-S1: Normal disc height with mild disc desiccation. No herniation, protrusion or disc bulging. The re is facet arthropathy change present. Foramina are patent bilaterally. Lumbar segments are intact. No paraspinal masses are identified. Conus medullaris has a normal appe arance. There is no significant spinal stenosis. There is multilevel spondylosis with minimal endplat e discogenic marrow signal change. Sizable left cortical renal cyst is again seen. IMPRESSION: Facet arthropathy, mild degenerative disc disease. No significant interval change.
--- NOTE | 2020-08-07 11:36 | MR ---
EXAMINATION TYPE: MR shoulder LT wo con DATE OF EXAM: 08/07/2020 COMPARISON: Prior MR left shoulder 12/05/2017 HISTORY: Left shoulder pain, Fall TECHNIQUE: Multiplanar, multisequence imaging of the left shoulder is performed without contrast. FINDINGS: There is motion on the exam. Rotator Cuff: Findings are similar, rotator cuff appears attenuated, partial full-thickness tear is p resent anteriorly, there is associated increased signal consistent with tendinosis. Acromioclavicular Joint: Distal acromial spur is present. Arthropathy is present. Some mass effect on the musculotendinous junction of supraspinatus. Glenohumeral joint: Stable, there is some arthropathy change, spurring at the humeral head. Remodelin g of the glenoid is present Labrum: The labrum appears grossly intact given limitation of non-arthrogram study. Biceps Tendon: The long head of biceps is in normal location within bicipital groove. Bone marrow signal: Pseudocysts are present within the humeral head as on prior exam.. Other: There is a joint effusion. Fluid signal is present along the subscapularis musculotendinous ju nction.. IMPRESSION: Osteoarthritis. Partial full-thickness tear the rotator cuff tendon, tendinopathy. Correlate for impi ngement. There is motion on the exam.
== END | disposition home or self-care (01) ==
LOC: RADMRIMAIN 09:49
PROVIDERS: ATTEND Internal Medicine
DX: S46.012A Strain of muscle(s) and tendon(s) of the rotator cuff of left shoulder, initial encounter (principal); M51.36 Other intervertebral disc degeneration, lumbar region; M19.012 Primary osteoarthritis, left shoulder; M47.816 Spondylosis without myelopathy or radiculopathy, lumbar region
CPT/HCPCS: 72148

== ENCOUNTER 2021-02-17 12:55 | Emergency (ER) | payer MEDICARE, OTHER ==
[2021-02-17 13:13] VITALS: RESP 18; TEMP 97.9
[2021-02-17] MEDS ORDERED: KETOROLAC 15 MG/ML 1 ML VIAL IM STA (13:20)
--- NOTE | 2021-02-17 13:34 | ED ---
General Adult HPI - General Chief complaint: Extremity Injury, Upper Stated complaint: fall R shoulder pain Time Seen by Provider: 02/17/21 13:13 Source: patient, RN notes reviewed, old records reviewed Mode of arrival: ambulatory Limitations: no limitations - History of Present Illness Initial comments: This Patient at 56-year-old female who presents to the ER with complaints of right shoulder pain. Patient reports that she was trying to get on a bus and lost her footing. She reports that she held onto a bar with her right arm fell backward pulling her right arm. She states that the following day she developed more pain and decreased range of motion to the right shoulder. She reports she's had a history of previous left rotator cuff injury. She reports that are painful similar to that. - Related Data Home Medications Medication Instructions Recorded Confirmed Hydrocodone/Acetaminophen [[place] 1 tab PO QID PRN 11/06/17 11/09/18 10-325] Zolpidem [Ambien] 10 mg PO HS 11/06/17 11/09/18 atenoloL [Tenormin] 25 mg PO DAILY 10/15/18 11/09/18 tiZANidine [Zanaflex] 4 mg PO TID PRN 10/15/18 11/09/18 Previous Rx's Medication Instructions Recorded Etodolac [Lodine] 400 mg PO TID #30 tablet 12/23/17 Ibuprofen 600 mg PO Q6H #20 tab 02/17/21 Allergies Allergy/AdvReac Type Severity Reaction Status Date / Time No Known Allergies Allergy Verified 11/09/18 13:32 Review of Systems ROS Statement: Those systems with pertinent positive or pertinent negative responses have been documented in the HPI. ROS Other: All systems not noted in ROS Statement are negative. Past Medical History Past Medical History: Hypertension, Musculoskeletal Disorder, Osteoarthritis (OA) Additional Past Medical History / Comment(s): HX ACCIDENT AT WORK W/ INJURY TO BACK AND CERVICAL SPINE, LT SHOULDER; NT LT ARM. History of Any Multi-Drug Resistant Organisms: None Reported Past Surgical History: Orthopedic Surgery, Tonsillectomy Additional Past Surgical History / Comment(s): LT ankle sx for arthritis. Past Anesthesia/Blood Transfusion Reactions: No Reported Reaction, Motion Sickness Past Psychological History: Anxiety, Depression Smoking Status: Never smoker Past Alcohol Use History: None Reported Past Drug Use History: None Reported - Past Family History Father Family Medical History: Dementia Mother Family Medical History: No Reported History Additional Family Medical History / Comment(s): Mother is healthy General Exam - General Exam Comments Initial Comments: 56 year old female. Limitations: no limitations General appearance: alert, in no apparent distress Head exam: Present: atraumatic, normocephalic, normal inspection Eye exam: Present: normal appearance, PERRL, EOMI. Absent: scleral icterus, conjunctival injection, periorbital swelling ENT exam: Present: normal exam, mucous membranes moist Neck exam: Present: normal inspection. Absent: tenderness, meningismus, lymphadenopathy Respiratory exam: Present: normal lung sounds bilaterally. Absent: respiratory distress, wheezes, rales, rhonchi, stridor Cardiovascular Exam: Present: regular rate, normal rhythm, normal heart sounds. Absent: systolic murmur, diastolic murmur, rubs, gallop, clicks GI/Abdominal exam: Present: soft, normal bowel sounds. Absent: distended, tenderness, guarding, rebound, rigid Extremities exam: Present: normal inspection, full ROM, normal capillary refill. Absent: tenderness, pedal edema, joint swelling, calf tenderness Right Shoulder Exam: Present: normal inspection. Absent: full ROM (limited abuduction to 40 degrees ) Upper Arm exam: Present: normal inspection, full ROM Elbow exam: Present: normal inspection, full ROM Forearm Wrist exam: Present: normal inspection, full ROM Back exam: Present: normal inspection, full ROM Neurological exam: Present: alert, oriented X3, CN II-XII intact Psychiatric exam: Present: normal affect, normal mood Skin exam: Present: warm, dry, intact, normal color. Absent: rash Course Vital Signs 02/17/21 02/17/21 13:10 14:19 Temperature 97.9 F Pulse Rate 55 L 68 Respiratory 18 18 Rate Blood Pressure 136/101 167/86 O2 Sat by Pulse 99 96 Oximetry Medical Decision Making - Medical Decision Making 56-year-old female with 1 week of right shoulder pain after pulling injury getting on a bus. X-ray shows concern for arthropathy for possible rotator cuff tear. She does have diminished range of motion. Patient advised used antiinflammatory medicine will follow-up with orthopedic. - Radiology Data Radiology results: report reviewed Correlate for possible rotator cuff tear, impingement there is underlying arthropathy change. Shoulder MRI be obtained may be of benefit Disposition Clinical Impression: Disorder of right rotator cuff Disposition: HOME SELF-CARE Condition: Good Instructions (If sedation given, give patient instructions): Rotator Cuff Injury (ED) Additional Instructions: You're advised to use the sling, but to take arm out occasionally to practice range of motion to avoid frozen shoulder syndrome. Take antiinflamatory medication as discussed. Follow up with orthopedic to discuss PT and MRI. Prescriptions: Ibuprofen 600 mg PO Q6H #20 tab Is patient prescribed a controlled substance at d/c from ED?: No Referrals: Papa Shelton MD [Primary Care Provider] - 1-2 days Kalen Matthew MD [STAFF PHYSICIAN] - 1-2 days Time of Disposition: 13:58
--- NOTE | 2021-02-17 13:56 | XR ---
Right shoulder HISTORY: Trauma and pain 3 views of the right shoulder There is arthropathy at the acromioclavicular joint, glenohumeral joint with marginal spurring and julissa int space loss. Right shoulders somewhat high riding. Suspect there is a distal acromial spur. Right upper lobe of the lung is within normal limits. No fracture or dislocation. IMPRESSION: Correlate for possible rotator cuff tear, impingement, there is underlying arthropathy ch [place]. Shoulder MRI may be of benefit.
[2021-02-17 14:19] VITALS: BP 167/86; PULSE 68
== END 2021-02-17 14:15 | disposition home or self-care (01) ==
LOC: EC 12:55
DX: S46.011A Strain of muscle(s) and tendon(s) of the rotator cuff of right shoulder, initial encounter (principal); I10 Essential (primary) hypertension; M19.90 Unspecified osteoarthritis, unspecified site; Z79.1 Long term (current) use of non-steroidal anti-inflammatories (NSAID); X50.9XXA Other and unspecified overexertion or strenuous movements or postures, initial encounter
CPT/HCPCS: 73030; 99283; 96372; J1885

== ENCOUNTER 2021-03-15 14:28 | Emergency (ER) | payer MEDICARE, OTHER ==
[2021-03-15] MEDS ORDERED: diphenhydrAMINE 50 MG/ML 1 ML VIAL IVP STA (16:30)
[2021-03-15] MEDS ORDERED: ACETAMINOPHEN TAB 500 MG TAB PO STA (16:30)
[2021-03-15 17:27] LABS: Basophils # (A) 0.1 k/uL (0-0.2); Basophils % (A) 1 %; Eosinophils # (A) 0.2 k/uL (0-0.7); Eosinophils % (A) 3 %; HCT 44.8 % (34.0-46.0); HGB 14.8 gm/dL (11.4-16.0); Lymphocytes # (A) 2.3 k/uL (1.0-4.8); Lymphocytes % (A) 45 %; MCH 30.2 pg (25.0-35.0); MCHC 32.9 g/dL (31.0-37.0); MCV 91.9 fL (80.0-100.0); Monocytes # (A) 0.3 k/uL (0-1.0); Monocytes % (A) 5 %; Neutrophils # (A) 2.3 k/uL (1.3-7.7); Neutrophils % (A) 44 %; Platelet Count 186 k/uL (150-450); RBC 4.88 m/uL (3.80-5.40); RDW 13.7 % (11.5-15.5); WBC 5.2 k/uL (3.8-10.6)
[2021-03-15 17:37] LABS: Albumin 4.4 g/dL (3.5-5.0); Potassium 4.4 mmol/L (3.5-5.1); Total Bilirubin 0.6 mg/dL (0.2-1.3); Total Protein 7.2 g/dL (6.3-8.2)
--- NOTE | 2021-03-15 18:19 | CT ---
EXAMINATION: CT brain wo con DATE AND TIME: 03/15/2021 6:05 PM CLINICAL INDICATION: posterior headache for a few days TECHNIQUE: Standard departmental protocol Total DLP: 1082.4 mGy-cm COMPARISON: 02/19/2012 FINDINGS: The calvarium is intact. There is no intracranial hemorrhage. There is no intracranial mass or mass effect. No definite new intra-axial or extra-axial attenuation defect. The paranasal sinuses, middle ear cavities, and mastoid sinus air cells are clear. The orbits are unremarkable. IMPRESSION: NO ACUTE PROCESS.
--- NOTE | 2021-03-15 18:51 | ED ---
ENT HPI - General Chief complaint: ENT Stated complaint: ear pain Time Seen by Provider: 03/15/21 16:06 Source: patient, RN notes reviewed Mode of arrival: wheelchair Limitations: no limitations - History of Present Illness Initial comments: Patient is a 56-year-old female that presents to emergency room complaining of left external ear irritation. She notes that it feels like her hair is burned and blistered. She denied changing any at home products such as detergents or fabric softener. Shewas rolled problem - headache in the back of her head that pulsated comes and goes on its own with no aggravating or alleviating factors. She was in no apparent distress while laying in bed during the exam interview. She denied any chest pain shortness of breath nausea vomiting diarrhea constipation fever fatigue chills blurry vision change in vision lightheadedness dizziness. - Related Data Home Medications Medication Instructions Recorded Confirmed Hydrocodone/Acetaminophen [[place] 1 tab PO QID PRN 11/06/17 11/09/18 10-325] Zolpidem [Ambien] 10 mg PO HS 11/06/17 11/09/18 atenoloL [Tenormin] 25 mg PO DAILY 10/15/18 11/09/18 tiZANidine [Zanaflex] 4 mg PO TID PRN 10/15/18 11/09/18 Previous Rx's Medication Instructions Recorded Etodolac [Lodine] 400 mg PO TID #30 tablet 12/23/17 Ibuprofen 600 mg PO Q6H #20 tab 02/17/21 Hydrocortisone Cream 1 applic TOPICAL QID 14 Days #60 gm 03/15/21 [Hydrocortisone 1% Cream] Allergies Allergy/AdvReac Type Severity Reaction Status Date / Time No Known Allergies Allergy Verified 03/15/21 15:16 Review of Systems ROS Statement: Those systems with pertinent positive or pertinent negative responses have been documented in the HPI. ROS Other: All systems not noted in ROS Statement are negative. Past Medical History Past Medical History: Hypertension, Musculoskeletal Disorder, Osteoarthritis (OA) Additional Past Medical History / Comment(s): HX ACCIDENT AT WORK W/ INJURY TO BACK AND CERVICAL SPINE, LT SHOULDER; NT LT ARM. History of Any Multi-Drug Resistant Organisms: None Reported Past Surgical History: Orthopedic Surgery, Tonsillectomy Additional Past Surgical History / Comment(s): LT ankle sx for arthritis. Past Anesthesia/Blood Transfusion Reactions: No Reported Reaction, Motion Sickness Past Psychological History: Anxiety, Depression Smoking Status: Never smoker Past Alcohol Use History: None Reported Past Drug Use History: None Reported - Past Family History Father Family Medical History: Dementia Mother Family Medical History: No Reported History Additional Family Medical History / Comment(s): Mother is healthy General Exam Limitations: no limitations General appearance: alert, in no apparent distress, obese Head exam: Present: atraumatic, normocephalic, normal inspection Eye exam: Present: normal appearance, PERRL, EOMI. Absent: scleral icterus, conjunctival injection, periorbital swelling ENT exam: Present: normal exam, mucous membranes moist Expanded Ear exam: Absent: normal external inspection (Left auricle erythematous and inflamed, not hot to the touch) Neck exam: Present: normal inspection Respiratory exam: Present: normal lung sounds bilaterally. Absent: respiratory distress, wheezes, rales, rhonchi, stridor Cardiovascular Exam: Present: regular rate, normal rhythm, normal heart sounds. Absent: systolic murmur, diastolic murmur, rubs, gallop, clicks Extremities exam: Present: normal inspection, full ROM, normal capillary refill. Absent: tenderness, pedal edema, joint swelling, calf tenderness Neurological exam: Present: alert, oriented X3 Psychiatric exam: Present: normal affect, normal mood Skin exam: Present: warm, dry, intact, normal color. Absent: rash Course Vital Signs 03/15/21 15:14 Temperature 98.2 F Pulse Rate 58 L Respiratory 20 Rate Blood Pressure 141/88 O2 Sat by Pulse 99 Oximetry Medical Decision Making - Medical Decision Making 56-year-old female complaining of left ear irritation and headache. CT of the brain, basic labs on thousand milligrams Tylenol, 50 mg of Benadryl ordered. CT of the brain negative for any acute process. Labs unremarkable. Case discussed with Dr. 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 - Lab Data Result diagrams: 03/15/21 17:07 03/15/21 17:07 Lab Results 03/15/21 03/15/21 Range/Units 17:07 17:07 WBC 5.2 (3.8-10.6) k/uL RBC 4.88 (3.80-5.40) m/uL Hgb 14.8 (11.4-16.0) gm/dL Hct 44.8 (34.0-46.0) % MCV 91.9 (80.0-100.0) fL MCH 30.2 (25.0-35.0) pg MCHC 32.9 (31.0-37.0) g/dL RDW 13.7 (11.5-15.5) % Plt Count 186 (150-450) k/uL MPV 7.0 Neutrophils % 44 % Lymphocytes % 45 % Monocytes % 5 % Eosinophils % 3 % Basophils % 1 % Neutrophils # 2.3 (1.3-7.7) k/uL Lymphocytes # 2.3 (1.0-4.8) k/uL Monocytes # 0.3 (0-1.0) k/uL Eosinophils # 0.2 (0-0.7) k/uL Basophils # 0.1 (0-0.2) k/uL Sodium 138 (137-145) mmol/L Potassium 4.4 (3.5-5.1) mmol/L Chloride 106 (98-107) mmol/L Carbon Dioxide 26 (22-30) mmol/L Anion Gap 6 mmol/L BUN 19 H (7-17) mg/dL Creatinine 0.86 (0.52-1.04) mg/dL Est GFR (CKD-EPI)AfAm 87 (>60 ml/min/1.73 sqM) Est GFR (CKD-EPI)NonAf 76 (>60 ml/min/1.73 sqM) Glucose 92 (74-99) mg/dL Calcium 9.0 (8.4-10.2) mg/dL Total Bilirubin 0.6 (0.2-1.3) mg/dL AST 34 (14-36) U/L ALT 24 (4-34) U/L Alkaline Phosphatase 95 (38-126) U/L Total Protein 7.2 (6.3-8.2) g/dL Albumin 4.4 (3.5-5.0) g/dL - Radiology Data Radiology results: report reviewed, image reviewed CT of the brain: No acute process. Disposition Clinical Impression: Rash, Headache Disposition: HOME SELF-CARE Condition: Stable Instructions (If sedation given, give patient instructions): Earache (ED) Additional Instructions: Please return to the Emergency Department if symptoms worsen or any other concerns. Follow-up with primary care and dermatology as soon as possible. Use hydrocortisone cream as needed for ear itching and discomfort. Take Tylenol Motrin for headache. Is patient prescribed a controlled substance at d/c from ED?: No Referrals: Papa Shelton MD [Primary Care Provider] - 1-2 days Time of Disposition: 18:51
[2021-03-15 20:36] VITALS: BP 137/72; PULSE 70; RESP 17; TEMP 98
== END 2021-03-15 19:30 | disposition home or self-care (01) ==
LOC: EC 14:28
DX: R21 Rash and other nonspecific skin eruption (principal); R51.9 Headache, unspecified; H92.02 Otalgia, left ear; I10 Essential (primary) hypertension; Z79.899 Other long term (current) drug therapy
CPT/HCPCS: 80053; 85025; 70450; 99284; 96374; J1200

== ENCOUNTER → 2022-01-24 | Outpatient (CLI) | payer MEDICARE, OTHER ==
[2022-01-24 13:00] LABS: Appearance,Urine Cloudy (Clear); Bacteria,Urine Many /hpf; Bilirubin,Urine Negative (Negative); Blood,Urine Negative (Negative); Color,Urine Yellow; Glucose,Urine (UA) Negative (Negative); Ketones,Urine Negative (Negative); Leukocyte Esterase,Urine Moderate (Negative); Mucus,Urine Rare /hpf; Nitrite,Urine Positive (Negative); PH, Urine 5.5 (5.0-8.0); Protein,Urine Negative (Negative); RBC,Urine 2 /hpf (0-5); Specific Gravity,Urine 1.015 (1.001-1.035); Squamous Epithelial Cell,Urine 6 /hpf (0-4); Urobilinogen,Urine <2.0 mg/dL (<2.0); WBC,Urine 26 /hpf (0-5)
[2022-01-24 13:39] LABS: INR 0.9 (<1.2); Partial Thromboplastin Time 28.2 sec (22.0-30.0); Prothrombin Time 10.2 sec (9.0-12.0)
[2022-01-24 19:44] LABS: HCT 42.4 % (37.2-46.3); MCH 30.6 pg (27.0-32.0); MCV 92.8 fL (80.0-97.0); Mean Platelet Volume 10.4 fL (9.5-12.2); NRBC Per 100 WBC 0 /100 WBCS (0.0-0.0); Platelet Count 199 X 10*3/uL (140-440); RBC 4.57 X 10*6/uL (4.10-5.20); RDW 13.5 % (11.5-14.5); WBC 4.22 X 10*3/uL (4.50-10.00)
[2022-01-24 19:49] LABS: African American GFR (CKD) 82.3 (60.0-200.0); Albumin 4.5 g/dL (3.8-4.9); Albumin/Globulin Ratio 1.55 (1.60-3.17); Anion Gap 9.3 mmol/L (10.00-18.00); BUN/Creat Ratio 15.89 Ratio (12.00-20.00); Blood Urea Nitrogen 14.3 mg/dL (9.0-27.0); Calcium 9.4 mg/dL (8.7-10.3); Carbon Dioxide 25.7 mmol/L (20.0-27.5); Globulin 2.9 g/dL (1.6-3.3); Potassium 3.9 mmol/L (3.5-5.5); Total Bilirubin 0.3 mg/dL (0.30-1.20); Total Protein 7.4 g/dL (6.2-8.2)
== END | disposition home or self-care (01) ==
LOC: LABWHC1 10:57
PROVIDERS: ATTEND Internal Medicine
DX: Z01.812 Encounter for preprocedural laboratory examination (principal); I10 Essential (primary) hypertension
CPT/HCPCS: 36415; 80053; 81001; 85027; 85610; 85730

== ENCOUNTER → 2022-02-01 | Outpatient (CLI) | payer MEDICARE, OTHER ==
--- NOTE | 2022-02-01 10:53 | XR ---
EXAMINATION TYPE: XR chest 2V DATE OF EXAM: 02/01/2022 COMPARISON: NONE TECHNIQUE: PA and lateral views submitted. HISTORY: Preop FINDINGS: The lungs are clear and there is no pneumothorax, pleural effusion, or focal pneumonia. Heart size normal. Mild hypertrophic change spine. Arthropathy of the shoulders. IMPRESSION: 1. No acute process.
== END | disposition home or self-care (01) ==
LOC: RADXRMAIN 10:35
PROVIDERS: ATTEND Internal Medicine
DX: Z01.818 Encounter for other preprocedural examination (principal); R05.9 Cough, unspecified
CPT/HCPCS: 71046

== ENCOUNTER → 2022-05-29 | Outpatient (CLI) | payer MEDICARE, OTHER ==
[2022-05-29 13:26] LABS: Partial Thromboplastin Time 27.3 sec (22.0-30.0); Prothrombin Time 10.7 sec (9.0-12.0)
[2022-05-29 18:18] LABS: African American GFR (CKD) 61.4 (60.0-200.0); Albumin 4.4 g/dL (3.8-4.9); Albumin/Globulin Ratio 1.66 (1.60-3.17); Anion Gap 11.6 mmol/L (10.00-18.00); BUN/Creat Ratio 12.72 Ratio (12.00-20.00); Basophils # (A) 0.03 X 10*3/uL (0.00-0.10); Basophils % (A) 0.5 %; Blood Urea Nitrogen 14.5 mg/dL (9.0-27.0); Calcium 9.3 mg/dL (8.7-10.3); Carbon Dioxide 25.1 mmol/L (20.0-27.5); Eosinophils # (A) 0.08 X 10*3/uL (0.04-0.35); Eosinophils % (A) 1.4 %; Globulin 2.6 g/dL (1.6-3.3); HCT 39.9 % (37.2-46.3); HGB 13.5 g/dL (12.0-15.0); Immature Grans, Automated 0.2 %; Lymphocytes # (A) 2.02 X 10*3/uL (0.90-5.00); Lymphocytes % (A) 35.4 %; MCH 30.8 pg (27.0-32.0); MCHC 33.8 g/dL (32.0-37.0); MCV 90.9 fL (80.0-97.0); Mean Platelet Volume 9.9 fL (9.5-12.2); Monocytes # (A) 0.39 X 10*3/uL (0.20-1.00); Monocytes % (A) 6.8 %; NRBC Per 100 WBC 0 /100 WBCS (0.0-0.0); Neutrophils # (A) 3.17 X 10*3/uL (1.80-7.70); Neutrophils % (A) 55.7 %; Platelet Count 226 X 10*3/uL (140-440); Potassium 3.7 mmol/L (3.5-5.5); RBC 4.39 X 10*6/uL (4.10-5.20); RDW 14.1 % (11.5-14.5); Total Bilirubin 0.5 mg/dL (0.30-1.20)
== END | disposition home or self-care (01) ==
LOC: LABWHC1 12:25
PROVIDERS: ATTEND Internal Medicine
DX: Z01.812 Encounter for preprocedural laboratory examination (principal)
CPT/HCPCS: 36415; 80053; 85025; 85610; 85730

== ENCOUNTER → 2022-12-25 | Outpatient (CLI) | payer MEDICARE, OTHER ==
--- NOTE | 2022-12-26 18:27 | MM ---
Reason for Exam: Screening (asymptomatic). Last mammogram was performed 6 year(s) and 10 month(s) ago. Patient History: Menarche at age 10. First Full-Term at age 16. Postmenopausal. Patient has history of breast feeding. Risk Values: Mariann 5 year model risk: 1.1%. NCI Lifetime model risk: 6.1%. Prior Study Comparison: 03/14/2016 Bilateral Screening Mammogram, [facility]. Tissue Density: The breast tissue is heterogeneously dense. This may lower the sensitivity of mammography. Findings: Analyzed By CAD. There is no suspicious group of microcalcifications or new suspicious mass in either breast. Overall Assessment: Negative, BI-RAD 1 Management: Screening Mammogram of both breasts in 1 year. 1. Patient should continue monthly self breast exams. 2. A clinical breast exam by your physician is recommended on an annual basis. 3. This exam should not preclude additional follow-up of suspicious palpable abnormalities. Electronically signed and approved by: Destiny Lund M.D. Radiologist
== END | disposition home or self-care (01) ==
LOC: RADMAMWWP 10:01
PROVIDERS: ATTEND Internal Medicine
DX: Z12.31 Encounter for screening mammogram for malignant neoplasm of breast (principal); Z78.0 Asymptomatic menopausal state
CPT/HCPCS: 77063; 77067

== ENCOUNTER → 2023-02-14 | Outpatient (CLI) | payer MEDICARE, OTHER ==
[2023-02-14 13:56] LABS: Calcium 8.8 mg/dL (8.4-10.2); Phosphorus 4.4 mg/dL (2.5-4.5); Potassium 4.3 mmol/L (3.5-5.1)
== END | disposition home or self-care (01) ==
LOC: LABT 11:54
PROVIDERS: ATTEND Psychiatry & Neurology Neurology
DX: M62.838 Other muscle spasm (principal)
CPT/HCPCS: 82310; 82607; 83735; 84100; 84132; 84295

== ENCOUNTER → 2023-04-21 | Outpatient (CLI) | payer MEDICARE, OTHER ==
--- NOTE | 2023-04-22 10:54 | MR ---
EXAMINATION TYPE: MR cervical spine wo con DATE OF EXAM: 04/21/2023 INDICATION: Patient age: Female; 58 years old; Reason for study: M54.2; Cervalgia COMPARISON: 11/27/2017. TECHNIQUE: Multi planar, multi sequence imaging was performed utilizing: T1-weighted, T2-weighted, an d turbo inversion recovery imaging of the cervical spine. IV Contrast: None FINDINGS: Alignment: The cervical vertebral bodies have preserved heights. Alignment is within normal limits gi jovita patient positioning. Bones: Multilevel degeneration changes throughout the spine worse at C3-C4 and C6-C7. Some bony react bravo edema on inversion recovery sequences. Osteophyte formation disc space narrowing facet and uncove rtebral joint arthropathy are seen throughout the spine. Cord: The spinal cord is unremarkable with regards to their signal intensity and morphology. Discs: Multilevel disc desiccation is present. C2-C3: No significant disc pathology. The spinal canal is patent. Bilateral facet and uncovertebral joint arthropathy are present with mild bilateral neural foraminal stenosis. C3-C4: No significant disc pathology. The spinal canal is patent. Bilateral facet and uncovertebral joint arthropathy are present with moderate to severe right and severe left neural foraminal stenosis . C4-C5: No significant disc pathology. The spinal canal is patent. Bilateral facet and uncovertebral joint arthropathy are present with moderate right and mild left neural foraminal stenosis. C5-C6: No significant disc pathology. The spinal canal is patent. Bilateral facet and uncovertebral joint arthropathy are present with mild bilateral neural foraminal stenosis. C6-C7: No significant disc pathology. The spinal canal is patent. Bilateral facet and uncovertebral joint arthropathy are present with moderate to severe right and moderate left neural foraminal stenos is. C7-T1: A disc osteophyte complex is present which minimally narrows the ventral subarachnoid space. Bilateral facet and uncovertebral joint arthropathy are present with moderate mild left neural francisco javier inal stenosis. Other: None. IMPRESSION: 1. No evidence for disc herniation or significant spinal canal stenosis. 2. Moderate disc degeneration with associated osteoarthritic changes worse at C3-C4 and C6-C7 with at least moderate to severe right C6-C7, and moderate to severe right C3-C4 and severe left C3-C4 neura l foraminal stenosis.
== END | disposition home or self-care (01) ==
LOC: RADMRIMAIN 16:23
PROVIDERS: ATTEND Psychiatry & Neurology Neurology
DX: M50.31 Other cervical disc degeneration, high cervical region (principal); M99.71 Connective tissue and disc stenosis of intervertebral foramina of cervical region
CPT/HCPCS: 72141

== ENCOUNTER → 2023-07-22 | Outpatient (CLI) | payer MEDICARE, OTHER ==
--- NOTE | 2023-07-22 17:14 | MR ---
EXAMINATION TYPE: MR lumbar spine wo con DATE OF EXAM: 07/22/2023 3:38 PM CLINICAL INDICATION:Female, 58 years old with history of M48.07 SPINAL STENOSIS, Low back pain that r adiates down left leg. COMPARISON: None TECHNIQUE: Multi planar, multi sequence imaging was performed utilizing: T1-weighted, T2-weighted, a nd turbo inversion recovery imaging of the lumbar spine. IV Contrast: (None if empty) FINDINGS: Alignment: The lumbar vertebral bodies have preserved heights. Mild grade 1 anterolisthesis of L4 on L5. Cord: The conus medullaris and the distal spinal cord appear unremarkable with regards to their signa l intensity and morphology. Bones/Discs: Mild degeneration changes throughout the spine with osteophyte formation and facet joint arthropathy. Intervertebral disc signal is maintained. T12-L1: No evidence of significant spinal canal stenosis or neural foraminal stenosis. L1-L2: No evidence of significant spinal canal stenosis or neural foraminal stenosis. L2-L3: No evidence of significant spinal canal stenosis or neural foraminal stenosis. L3-L4: No evidence of significant spinal canal stenosis or neural foraminal stenosis. L4-L5: No evidence of significant spinal canal stenosis or neural foraminal stenosis. L5-S1: The disc is rounded posterior morphology without significant spinal canal stenosis. Facet join t arthropathy with mild bilateral neural foraminal stenosis. No significant spinal canal or neural foraminal stenosis in the remainder of the visualized levels. Other findings: Left simple renal cyst with high T2 signal.. IMPRESSION: 1. No definitive evidence of disc herniation or significant spinal canal stenosis. 2. Mild disc degeneration with associated osteoarthritic changes.
== END | disposition home or self-care (01) ==
LOC: RADMRIMAIN 14:38
PROVIDERS: ATTEND Neurological Surgery
DX: M48.07 Spinal stenosis, lumbosacral region (principal); M47.27 Other spondylosis with radiculopathy, lumbosacral region; M51.17 Intervertebral disc disorders with radiculopathy, lumbosacral region
CPT/HCPCS: 72148

== ENCOUNTER → 2023-07-30 | Outpatient (CLI) | payer MEDICARE, OTHER ==
[2023-07-30 14:02] VITALS: BP 168/70; PULSE 65; RESP 16
--- NOTE | 2023-07-30 14:58 | P.PAINPG ---
PQRS Measure Charge Sheet Comment: HISTORY OF PRESENT ILLNESS: A 58 yr old female as a referral from Dr Cali presents today w severe and chronic secondary to for evaluation. Pt has not opted for ESIs in 2018, 2019 at her visits here. Pt states pain level is provoked at 8/10 in intensity, constant, localized in the cervical & lumbar spine, predominantly axial, throbbing in character without shooting pain. Pain is provoked by lifting, bending, twisting. Pain is alleviated by medications ([place] 10/325mg #120, Lyrica 300mg #60, Zanaflex 4mg #90, Ibu 800mg #90), repositioning and rest. Oswestry axial pain score at 28. PMH: OA, HTN, MDD/ Anxiety PSH: L Ankle Surgery, Tonsillectomy, Work- related injury to cervical/lumbar/LUE regions SH: 2 packs per week tobacco use, No ETOH abuse, No illicit drug use FH: Fa- Dementia. Mo- No Reported History All: See list Meds: See list REVIEW OF ORGAN SYSTEMS: CONSTITUTIONAL: No fevers or chills. No recent weight loss. NEUROLOGICAL: + numbness and tingling along the distal extremities. No seizure disorders or headaches. MUSCULOSKELETAL: + pain PSYCHIATRIC: Denies current depression or suicidal thoughts. Physical Examinations : Constitutional : Cooperative , not in acute distress . Neurologic : Cranial nerve II to XII intact. No focal neurological deficits. Psychiatric : alert & oriented x 3. Matching mood & appropriate affect. Judgment & insight intact. Musculoskeletal : Cervical Spine Motor strength in the deltoid and biceps: Normal right side. Normal Left side Motor strength biceps and the wrist extensors: Normal right side . Normal left side Motor strength in the triceps muscle: Normal right side. Normal left side Deep tendon reflexes: Normal at the biceps. Normal at Brachioradialis. Normal at triceps Vertebral body tenderness to deep palpation over Cervical facet loading test: positive bilaterally Spurling test: positive bilaterally Neck distraction test: positive bilaterally Aleksandar sign: positive bilaterally Lumbar spine Motor strength lower extremities ,thigh and legs 5/5 Right side , 5/5 Left side Deep tendon reflexes : Normal Knee Jerk. Normal Ankle Jerk Vertebral body tenderness over Cortes Test positive Lumbar facet Loading Test: positive Right / positive Left Range of motion of the lumbar spine Flexion 30 degrees, extension 10 degrees Straight Leg Raise test: Left/ Right positive at degree Tawny test: positive right / positive left. Severe tenderness over the Sacroiliac joint on the Right / Left sides Gaenslen test: positive bilaterally Seated flexion test: positive bilaterally. Sacral spine : Severe tenderness over the Sacroiliac joint: right side / left side Range of motion: Flexion of the lumbar spine <60 degrees Range of motion: Extension of the lumbar spine <20 degrees Gaenslen's Test positive Tawny test: positive right side / left side Thigh Thrust Test Sacral Thrust Test Imaging: MRI non contrast of the cervical spine from 04/21/23 reviewed MRI non contrast of the lumbar spine from 07/22/23 reviewed Assessment/ Plan : Cervical DDD, Lumbar DDD Disinterested in interventional pain management at this time. Pt stated she will "think about it" and may RTC on an as needed basis. All questions answered. I have spent greater than 30 minutes on patient care today. Dr Appiah was available by phone for the evaluation of this patient. The time was used to review the medical records including relevant urine studies and Prescription history (MAPs), review of the available imaging, evaluation and examination of the patient, coordination of care with the medical staff and if applicable referring physicians, as well as creation of the medical record PQRS Narrative: Smoking Status Former smoker Hx Alcohol Use (MH) No Home Medications: Ambulatory Orders Hydrocodone/Acetaminophen [[place] 10-325] 1 tab PO QID PRN 11/06/17 Zolpidem [Ambien] 10 mg PO HS 11/06/17 Etodolac [Lodine] 400 mg PO TID #30 tablet 12/23/17 atenoloL [Tenormin] 25 mg PO DAILY 10/15/18 tiZANidine [Zanaflex] 4 mg PO TID PRN 10/15/18 Ibuprofen 600 mg PO Q6H #20 tab 02/17/21 Hydrocortisone Cream [Hydrocortisone 1% Cream] 1 applic TOPICAL QID 14 Days #60 gm 03/15/21 Controlled Substance Measures - Controlled Substance Measures Is patient prescribed a controlled substance at discharge?: No
== END ==
LOC: PNWHC3 12:53
PROVIDERS: ATTEND Specialist
DX: M50.30 Other cervical disc degeneration, unspecified cervical region (principal); M51.36 Other intervertebral disc degeneration, lumbar region; G35 Multiple sclerosis; M19.90 Unspecified osteoarthritis, unspecified site; I10 Essential (primary) hypertension; F32.9 Major depressive disorder, single episode, unspecified; F41.9 Anxiety disorder, unspecified; F17.210 Nicotine dependence, cigarettes, uncomplicated
CPT/HCPCS: 99211

== ENCOUNTER → 2023-08-11 | Outpatient (CLI) | payer MEDICARE, OTHER ==
--- NOTE | 2023-08-11 14:54 | P.PAINPG ---
PQRS Measure Charge Sheet Comment: HISTORY OF PRESENT ILLNESS: A 58 yr old female presents today w severe and chronic neck pain x yrs secondary to DDD, spondylosis and facet arthropathy without myelopathy for evaluation. Pt has not opted for ESIs in 2018, 2019 at her visits here. She was told at least 3 times on the phone that her treatment plan here will not be solely narcotics, but interventional pain management. Pt states pain level is provoked at 8/10 in intensity, constant, localized in the cervical spine, predominantly axial, throbbing in character w occasional shooting pain to the BL shoulders. Pain is provoked by lifting, bending, twisting. Pain is alleviated by medications, repositioning and rest. Cervical disability pain score at 26. Interventional procedures include CESIs in the past Medications include [place] 10/325mg #90, Lyrica 300mg #60, Zanaflex 4mg #90, Ibu 800mg #90 REVIEW OF ORGAN SYSTEMS: CONSTITUTIONAL: No fevers or chills. No recent weight loss. NEUROLOGICAL: + numbness and tingling along the distal extremities. No seizure disorders or headaches. MUSCULOSKELETAL: + pain PSYCHIATRIC: Denies current depression or suicidal thoughts. Physical Examinations : Constitutional : Cooperative , not in acute distress . Neurologic : Cranial nerve II to XII intact. No focal neurological deficits. Psychiatric : alert & oriented x 3. Matching mood & appropriate affect. Judgment & insight intact. Musculoskeletal : Cervical Spine Motor strength in the deltoid and biceps: Normal right side. Normal Left side Motor strength biceps and the wrist extensors: Normal right side . Normal left side Motor strength in the triceps muscle: Normal right side. Normal left side Deep tendon reflexes: Normal at the biceps. Normal at Brachioradialis. Normal at triceps Vertebral body tenderness to deep palpation over C6 Cervical facet loading test: positive bilaterally Spurling test: positive bilaterally over C6-C7 Neck distraction test: positive bilaterally Aleksandar sign: positive bilaterally Lumbar spine Motor strength lower extremities ,thigh and legs 5/5 Right side , 5/5 Left side Deep tendon reflexes : Normal Knee Jerk. Normal Ankle Jerk Vertebral body tenderness over Cortes Test positive Lumbar facet Loading Test: positive Right / positive Left Range of motion of the lumbar spine Flexion 30 degrees, extension 10 degrees Straight Leg Raise test: Left/ Right positive at degree Tawny test: positive right / positive left. Severe tenderness over the Sacroiliac joint on the Right / Left sides Gaenslen test: positive bilaterally Seated flexion test: positive bilaterally. Sacral spine : Severe tenderness over the Sacroiliac joint: right side / left side Range of motion: Flexion of the lumbar spine <60 degrees Range of motion: Extension of the lumbar spine <20 degrees Gaenslen's Test positive Tawny test: positive right side / left side Thigh Thrust Test Sacral Thrust Test Imaging: MRI non contrast of the cervical spine from 04/21/23 reviewed MRI non contrast of the lumbar spine from 07/22/23 reviewed Assessment/ Plan : Cervical DDD, Lumbar DDD Recommendation of JAMIE C6-C7 #1. May need a series of injections for optimal pain relief. Risks, benefits of procedure discussed and pt verbalized understanding. Protocol for discontinuation/ continuation of medications maría procedure discussed Medication management. Reduced MME w Opiate/ narcotic agreement signed 08/11/23. [place] 7.5/325mg #120 w 1 RF. Use, side effects, adverse reactions and safe storage discussed. Pt verbalized understanding. All questions answered. I have spent greater than 30 minutes on patient care today. Dr Appiah was available by phone for the evaluation of this patient. The time was used to review the medical records including relevant urine studies and Prescription history (MAPs), review of the available imaging, evaluation and examination of the patient, coordination of care with the medical staff and if applicable referring physicians, as well as creation of the medical record PQRS Narrative: Smoking Status Former smoker Hx Alcohol Use (MH) No Home Medications: Ambulatory Orders Zolpidem [Ambien] 10 mg PO HS 11/06/17 Etodolac [Lodine] 400 mg PO TID #30 tablet 12/23/17 atenoloL [Tenormin] 25 mg PO DAILY 10/15/18 tiZANidine [Zanaflex] 4 mg PO TID PRN 10/15/18 Ibuprofen 600 mg PO Q6H #20 tab 02/17/21 Hydrocortisone Cream [Hydrocortisone 1% Cream] 1 applic TOPICAL QID 14 Days #60 gm 03/15/21 HYDROcodone/APAP 7.5-325MG [[place] 7.5-325] 1 tab PO Q6H PRN 30 Days #120 tab 08/11/23 HYDROcodone/APAP 7.5-325MG [[place] 7.5-325] 1 tab PO Q6HR PRN 30 Days #120 tab 08/11/23 Controlled Substance Measures - Controlled Substance Measures Is patient prescribed a controlled substance at discharge?: Yes When asked, does pt state using other controlled substances?: Yes If prescribed controlled substance>3 days was MAPS reviewed?: Yes If Rx opioid, was Start Talking consent form obtained?: Yes Was information provided regarding opioid addiction?: Yes
[2023-08-11 15:21] VITALS: BP 134/110; PULSE 62; RESP 16
== END ==
LOC: PNWHC3 13:56
PROVIDERS: ATTEND Specialist
DX: M51.36 Other intervertebral disc degeneration, lumbar region (principal); M50.323 Other cervical disc degeneration at C6-C7 level; Z87.891 Personal history of nicotine dependence
CPT/HCPCS: 99211

== ENCOUNTER 2023-09-02 11:06 | Day surgery (SDC) | payer MEDICARE, OTHER ==
[2023-08-29 09:22] VITALS: BMI 41.5
[~2023-09-02 11:06] MED LIST: LACTATED RINGERS 1,000 ML IV SCH
[2023-09-02 11:31] VITALS: TEMP 98
[2023-09-02] MEDS ORDERED: DEXAMETHASONE SOD PHOSPHATE 10 MG/ML 1 ML VIAL ONE (11:49)
[2023-09-02] MEDS ORDERED: IOPAMIDOL M200 10 ML VIAL ONE (11:49)
--- NOTE | 2023-09-02 12:00 | P.PCN ---
Date of Procedure: 09/02/23 Operative Findings: PROCEDURE 1. Cervical epidural steroid injection under fluoroscopic guidance, C7-T1 2. Cervical epidurogram. PREOPERATIVE DIAGNOSIS: Cervical radiculopathy POSTOPERATIVE DIAGNOSIS: Cervical radiculopathy Imaging: Fluoroscopy was used, images where saved to the medical record I had a long discussion in pre op about the procedure and her pain. She has chronic left shoulder pain, reports her doctor told her she needs a total shoulder replacement but she disagree's, the arm has been limp due to pain for 6 years. I discussed that if she is a patient of the clinic, she should stay here and avoid having procedures or getting meds from other clinics as it will be difficult for us to coordinate care or understand which procedures were done at which time. This can be repetitive. I explained clearly that the narcotics contract is not about procedures but it is about following a prescribed plan of care using what ever tools are necessary. ANESTHESIA: LOCAL only PROCEDURE DESCRIPTION / TECHNIQUE: The patient was seen and identified in the preoperative area. Risks, benefits, and alternatives were discused with the patient and the patient has consented to the procedure. Risks of the procedure include potential for bleeding, infection, nerve damage, and incomplete pain relief were discussed with the patient. All questions were answered for the patient Patient was taken to the OR and time out was completed. The patient was placed in the prone position on the procedure table. A pillow was placed under the patients chest to increase the cervical interlaminar space. The cervical area was prepped and draped in the usual sterile fashion. Vital signs were closely monitored during the procedure. Using anterior-posterior fluoroscopy, the C7-T1 interlaminar space was identified and the skin over this site was marked and then infiltrated with 1% lidocaine subcutaneously. Subsequently, a 20-gauge 3-1/2-inch Tuohy epidural needle was inserted and advanced toward the epidural space by means of the [id number] technique and guided by AP and lateral fluoroscopy. The correct needle position in the epidural space was verified with the injection of 1 mL of the water soluble contrast dye [id number]-180 and observing an excellent epidurogram with the epidural spread of the dye, after negative aspiration for blood and CSF and in the absence of paresthesias. Again after negative aspiration, a mixture containing 10 mg Dexamethasone and 2 ml of preservative- free normal saline injected and a washout of epidurogram was seen. Needle was withdrawn intact, skin was cleansed, and bandages were applied. Complications: none. Disposition: patient was placed in supine position and transferred to the recovery room area in stable condition and there was no evidence of upper or lower extremity motor or sensory deficit after the procedure patient was discharged from recovery room after discharge criteria met and home discharge instructions was given by the staff and patient will follow with the pain as directed.
[2023-09-02 12:21] VITALS: RESP 18
--- NOTE | 2023-09-02 12:21 | FL ---
EXAMINATION TYPE: FL guided pain mgmt statistic DATE OF EXAM: 09/02/2023 HISTORY: Fluoroscopy time Total dose area product (DAP) in uGy*m?, mGy*cm? (or similar): 0.96839 IMPRESSION: 1. Fluoroscopy time.
[2023-09-02 12:22] VITALS: BP 167/100; PULSE 66
== END 2023-09-02 12:29 | disposition home or self-care (01) ==
LOC: ORPAIN 11:06
PROVIDERS: ATTEND Hospitalist
DX: M54.12 Radiculopathy, cervical region (principal); G89.29 Other chronic pain
CPT/HCPCS: 62321; J1100; Q9966

== ENCOUNTER → 2023-10-06 | Outpatient (CLI) | payer MEDICARE, OTHER ==
[2023-10-06 14:24] VITALS: BP 178/119; PULSE 64; RESP 16
--- NOTE | 2023-10-06 14:25 | P.PAINPG ---
PQRS Measure Charge Sheet Comment: HISTORY OF PRESENT ILLNESS: A 58 yr old female presents today w severe and chronic neck pain x yrs secondary to DDD, spondylosis and facet arthropathy without myelopathy for evaluation s/p JAMIE C7-T1 #1. Pt states she experienced 50 % pain relief x 2-3 wks s/p procedure. Pt stated she's had CESIs and a cervical ablation at a clinic in [facility] in the past, but none were done in 2018, 2019 at her visits here. Pt states pain level is provoked at 8/10 in intensity, constant, localized in the cervical spine, predominantly axial, throbbing in character w occasional shooting pain to the BL shoulders. Pain is provoked by lifting, bending, twisting. Pain is alleviated by injections, medications, repositioning and rest. Cervical disability pain score at 25. Interventional procedures include CESIs in the past, C7-T1 x1 Medications include [place] 10/325mg #90, Lyrica 300mg #60, Zanaflex 4mg #90, Ibu 800mg #90 REVIEW OF ORGAN SYSTEMS: CONSTITUTIONAL: No fevers or chills. No recent weight loss. NEUROLOGICAL: + numbness and tingling along the distal extremities. No seizure disorders or headaches. MUSCULOSKELETAL: + pain PSYCHIATRIC: Denies current depression or suicidal thoughts. Physical Examinations : Constitutional : Cooperative , not in acute distress . Neurologic : Cranial nerve II to XII intact. No focal neurological deficits. Psychiatric : alert & oriented x 3. Matching mood & appropriate affect. Judgment & insight intact. Musculoskeletal : Cervical Spine Motor strength in the deltoid and biceps: Normal right side. Normal Left side Motor strength biceps and the wrist extensors: Normal right side . Normal left side Motor strength in the triceps muscle: Normal right side. Normal left side Deep tendon reflexes: Normal at the biceps. Normal at Brachioradialis. Normal at triceps Vertebral body tenderness to deep palpation over C7 Cervical facet loading test: positive bilaterally Spurling test: positive bilaterally over C7- T1 Neck distraction test: positive bilaterally Aleksandar sign: positive bilaterally Lumbar spine Motor strength lower extremities ,thigh and legs 5/5 Right side , 5/5 Left side Deep tendon reflexes : Normal Knee Jerk. Normal Ankle Jerk Vertebral body tenderness over Cortes Test positive Lumbar facet Loading Test: positive Right / positive Left Range of motion of the lumbar spine Flexion 30 degrees, extension 10 degrees Straight Leg Raise test: Left/ Right positive at degree Tawny test: positive right / positive left. Severe tenderness over the Sacroiliac joint on the Right / Left sides Gaenslen test: positive bilaterally Seated flexion test: positive bilaterally. Sacral spine : Severe tenderness over the Sacroiliac joint: right side / left side Range of motion: Flexion of the lumbar spine <60 degrees Range of motion: Extension of the lumbar spine <20 degrees Gaenslen's Test positive Tawny test: positive right side / left side Thigh Thrust Test Sacral Thrust Test Imaging: MRI non contrast of the cervical spine from 04/21/23 reviewed MRI non contrast of the lumbar spine from 07/22/23 reviewed Assessment/ Plan : Cervical DDD, Lumbar DDD Recommendation of medication management. UDS collected 10/06/23. [place] 7.5/325mg #120 w 1 RF. Opiate/ narcotic agreement signed 08/11/23. Use, side effects, adverse reactions and safe storage discussed. Pt verbalized understanding. All questions answered. I have spent greater than 30 minutes on patient care today. Dr Appiah was available by phone for the evaluation of this patient. The time was used to review the medical records including relevant urine studies and Prescription history (MAPs), review of the available imaging, evaluation and examination of the patient, coordination of care with the medical staff and if applicable referring physicians, as well as creation of the medical record - Pain Location Bilateral Lower Neck Non-Pharmacological Interventions: Heat, Ice, Inactivity, Physical Therapy, Position/Reposition, Sitting Pharmacological Interventions: Epidural, PRN Medication, Scheduled Medication, Topical Medication PQRS Narrative: Smoking Status Former smoker Hx Alcohol Use (MH) No Home Medications: Ambulatory Orders Etodolac [Lodine] 400 mg PO TID #30 tablet 12/23/17 atenoloL [Tenormin] 25 mg PO DAILY 10/15/18 tiZANidine [Zanaflex] 4 mg PO TID PRN 10/15/18 Hydrocortisone Cream [Hydrocortisone 1% Cream] 1 applic TOPICAL QID 14 Days #60 gm 03/15/21 Gabapentin 600 mg PO TID 08/29/23 HYDROcodone/APAP 7.5-325MG [[place] 7.5-325] 1 tab PO Q6H PRN 30 Days #120 tab 10/06/23 HYDROcodone/APAP 7.5-325MG [[place] 7.5-325] 1 tab PO QID PRN 30 Days #120 tab 10/06/23 Controlled Substance Measures - Controlled Substance Measures Is patient prescribed a controlled substance at discharge?: Yes When asked, does pt state using other controlled substances?: No If prescribed controlled substance>3 days was MAPS reviewed?: Yes
== END ==
LOC: PNWHC3 13:31
PROVIDERS: ATTEND Specialist
DX: M50.33 Other cervical disc degeneration, cervicothoracic region (principal); M51.36 Other intervertebral disc degeneration, lumbar region; Z51.81 Encounter for therapeutic drug level monitoring; Z87.891 Personal history of nicotine dependence
CPT/HCPCS: 80307; G0463; 99212

== ENCOUNTER 2024-02-24 06:18 | Emergency (ER) | payer MEDICARE, OTHER ==
--- NOTE | 2024-02-24 07:03 | ED ---
Fall HPI - General Chief Complaint: Fall Stated Complaint: Fall Time Seen by Provider: 02/24/24 06:28 Source: patient, RN notes reviewed, old records reviewed Mode of arrival: wheelchair Limitations: no limitations - History of Present Illness Initial Comments: 5-year-old female presents emergency department chief complaint of a fall. Patient states she frequently falls due to her back. Patient states she fell onto her left shoulder and complains of head and neck shoulder discomfort. She has chronic neck issues she states she has pain rating down her left arm but states it is more numbness. She has no chest pain shortness of breath back pain lower extremity pain. States she has full use and motion of her left arm and right upper arm. Denies any blood thinners denies any other associated symptoms - Related Data Home Medications Medication Instructions Recorded Confirmed atenoloL [Tenormin] 25 mg PO DAILY 10/15/18 10/06/23 tiZANidine [Zanaflex] 4 mg PO TID PRN 10/15/18 10/06/23 Gabapentin 600 mg PO TID 08/29/23 10/06/23 Previous Rx's Medication Instructions Recorded Etodolac [Lodine] 400 mg PO TID #30 tablet 12/23/17 Hydrocortisone Cream 1 applic TOPICAL QID 14 Days #60 gm 03/15/21 [Hydrocortisone 1% Cream] HYDROcodone/APAP 7.5-325MG [[place] 1 tab PO Q6H PRN 30 Days #120 tab 10/06/23 7.5-325] HYDROcodone/APAP 7.5-325MG [[place] 1 tab PO QID PRN 30 Days #120 tab 10/06/23 7.5-325] predniSONE 50 mg PO DAILY #5 tab 02/24/24 Allergies Allergy/AdvReac Type Severity Reaction Status Date / Time No Known Allergies Allergy Verified 02/24/24 06:24 Review of Systems ROS Statement: Those systems with pertinent positive or pertinent negative responses have been documented in the HPI. ROS Other: All systems not noted in ROS Statement are negative. Past Medical History Past Medical History: Hypertension, Musculoskeletal Disorder, Osteoarthritis (OA) Additional Past Medical History / Comment(s): HX ACCIDENT AT WORK W/ INJURY TO BACK AND CERVICAL SPINE, LT SHOULDER; NT LT ARM. History of Any Multi-Drug Resistant Organisms: None Reported Past Surgical History: Orthopedic Surgery, Tonsillectomy Additional Past Surgical History / Comment(s): LT ankle sx for arthritis. Past Anesthesia/Blood Transfusion Reactions: No Reported Reaction, Motion Sickness Past Psychological History: Anxiety, Depression Smoking Status: Never smoker Past Alcohol Use History: None Reported Past Drug Use History: None Reported - Past Family History Father Family Medical History: Dementia Mother Family Medical History: No Reported History Additional Family Medical History / Comment(s): Mother is healthy General Exam Limitations: no limitations General appearance: alert, in no apparent distress Head exam: Present: atraumatic, normocephalic, normal inspection Eye exam: Present: normal appearance, PERRL, EOMI. Absent: scleral icterus, conjunctival injection, periorbital swelling ENT exam: Present: normal exam, normal oropharynx, mucous membranes moist Neck exam: Present: normal inspection, tenderness (Mild left-sided paraspinal no midline tenderness no step-off), full ROM. Absent: meningismus, lymphadenopathy Respiratory exam: Present: normal lung sounds bilaterally. Absent: respiratory distress, wheezes, rales, rhonchi, stridor Cardiovascular Exam: Present: regular rate, normal rhythm, normal heart sounds. Absent: systolic murmur, diastolic murmur, rubs, gallop, clicks Extremities exam: Present: normal inspection, full ROM, normal capillary refill. Absent: tenderness, pedal edema, joint swelling, calf tenderness Back exam: Present: full ROM. Absent: tenderness Neurological exam: Present: alert, oriented X3, CN II-XII intact, reflexes normal. Absent: motor sensory deficit Course Vital Signs 02/24/24 02/24/24 06:24 07:28 Temperature 97.8 F 99.0 F Pulse Rate 65 60 Respiratory 18 18 Rate Blood Pressure 160/90 133/90 O2 Sat by Pulse 97 96 Oximetry Medical Decision Making - Medical Decision Making Was pt. sent in by a medical professional or institution (, PA, RELASTER, urgent care, hospital, or group home...) When possible be specific @ -No Did you speak to anyone other than the patient for history (EMS, parent, family, police, friend...)? What history was obtained from this source @ -No Did you review nursing and triage notes (agree or disagree)? Why? @ -I reviewed and agree with nursing and triage notes Were old charts reviewed (outside hosp., previous admission, EMS record, old EKG, old radiological studies, urgent care reports/EKG's, group home records)? Report findings @ -No old charts were reviewed Differential Diagnosis (chest pain, altered mental status, abdominal pain women, abdominal pain men, vaginal bleeding, weakness, fever, dyspnea, syncope, headache, dizziness, GI bleed, back pain, seizure, CVA, palpatations, mental health, musculoskeletal)? @ -Fall, neck strain, head injury, shoulder dislocation, shoulder sprain, cervical radiculopathy EKG interpreted by me (3pts min.). @ -None X-rays interpreted by me (1pt min.). @ -None done CT interpreted by me (1pt min.). @ -CT brain, C-spine shows no intracranial hemorrhage or mass effect, cervical degenerative changes, old orbital fracture, nasal fracture U/S interpreted by me (1pt. min.). @ -None done What testing was considered but not performed or refused? (CT, X-rays, U/S, labs)? Why? @ -None What meds were considered but not given or refused? Why? @ -None Did you discuss the management of the patient with other professionals (professionals i.e. , PA, RELASTER, lab, RT, psych nurse, social work manager, appraiser real estate, teacher, house officer, housing case manager)? Give summary @ -No Was smoking cessation discussed for >3mins.? @ -No Was critical care preformed (if so, how long)? @ -No Were there social determinants of health that impacted care today? How? (Homelessness, low income, unemployed, alcoholism, drug addiction, transportation, low edu. Level, literacy, decrease access to med. care, [place] [facility], rehab)? @ -No Was there de-escalation of care discussed even if they declined (Discuss DNR or withdrawal of care, Hospice)? DNR status @ -No What co-morbidities impacted this encounter? (DM, HTN, Smoking, COPD, CAD, Cancer, CVA, ARF, Chemo, Hep., AIDS, mental health diagnosis, sleep apnea, morbid obesity)? @ -Chronic pain Was patient admitted / discharged? Hospital course, mention meds given and route, prescriptions, significant lab abnormalities, going to OR and other pertinent info. @ -[Discharge patient presented after a fall patient's imaging including x-ray left shoulder, cervical spine and brain showing no acute findings patient has a cervical triopathy in which she has chronic neck issues she will follow-up with her pain management she has full range of motion neurovascular intact Undiagnosed new problem with uncertain prognosis? @ -No Drug Therapy requiring intensive monitoring for toxicity (Heparin, Nitro, Insulin, Cardizem)? @ -No Were any procedures done? @ -No Diagnosis/symptom? @-Cervical radiculopathy, fall Acute, or Chronic, or Acute on Chronic? @ -Acute Uncomplicated (without systemic symptoms) or Complicated (systemic symptoms)? @ -Uncomplicated Side effects of treatment? @ -No Exacerbation, Progression, or Severe Exacerbation? @ -No Poses a threat to life or bodily function? How? (Chest pain, [place], [place], pneumonia, PE, COPD, DKA, ARF, appy, cholecystitis, CVA, Diverticulitis, Homicidal, Suicidal, threat to staff... and all critical care pts) @ -No Disposition Clinical Impression: Fall, Cervical radiculopathy Disposition: HOME SELF-CARE Condition: Stable Instructions (If sedation given, give patient instructions): Cervical Radiculopathy (ED) Additional Instructions: Please return to the Emergency Department if symptoms worsen or any other concerns. Prescriptions: predniSONE 50 mg PO DAILY #5 tab Is patient prescribed a controlled substance at d/c from ED?: No Referrals: Ruthann Garcia [Primary Care Provider] - 1-2 days Time of Disposition: 08:16
--- NOTE | 2024-02-24 07:28 | XR ---
EXAMINATION TYPE: XR shoulder complete 3 views LT DATE OF EXAM: 02/24/2024 Comparison: 11/03/2017 Clinical History: 59-year-old female with fall and pain Findings: Bony irregularity has developed at the greater tuberosity with slight narrowing of the subacromial sp marky. Mild degenerative change at the AC joint. No acute fracture, subluxation, dislocation. Suspect s ome underlying degenerative spurring at the humeral joint. Impression: Possible underlying rotator cuff arthropathy secondary to chronic full-thickness rotator cuff tear, luisito barillas from 2018. MRI if clinically indicated. Mild AC joint joint. Otherwise, no acute osseous ab normality seen.
--- NOTE | 2024-02-24 07:34 | CT ---
EXAMINATION TYPE: CT brain pazine wo con DATE OF EXAM: 02/24/2024 COMPARISON: Brain 03/15/2021 HISTORY: 59-year-old female Pt presents after 2 falls, one yesterday and another one early this raheel mathis. Pt complains of left arm numbness, left shoulder, and back pain. CT DLP: 1665.2 mGycm Automated exposure control for dose reduction was used. Technique: Examination of the head was done in axial plane without intravenous contrast. Coronal and sagittal reconstructions performed. CT of the cervical spine was obtained in axial plane without intravenous injection of contrast mater ial. Coronal and sagittal reformatted images were obtained from the axial views for evaluation of f ractures, spinal alignment and canal. FINDINGS: Head: There is no evidence of acute intracranial hemorrhage, acute ischemic changes, mass, mass-effect, or extra-axial fluid collection. There is no effacement of cerebral sulci or basal subarachnoid cister ns. There is no hydrocephalus. There is no midline shift. Nuno-white matter distinction is preserv ed. Old fracture medial right orbital floor. Slight rightward nasal septal deviation. Mastoid air cells a re well pneumatized. Cervical spine: No craniocervical junction abnormality, predental space widening, or prevertebral soft tissue swellin g. Degenerative change at the C1 dens articulation. Severe multilevel hypertrophic facet arthropathy. Moderate to severe uncovertebral joint arthropathy throughout. Degenerative grade 1 anterolisthesis C3-C4, C4-C5, C5-C6. Moderate to advanced disc/endplate degenerative change C6-7. No evident bony canal compromise. No acute fracture seen of the cervical spine. Variable neuroforaminal stenosis throughout, severe on the left at C3-C4, right at C4-C5 and C6-C7. Asymmetric enlargement left lobe of thyroid gland, possible underlying 3.2 cm nodule within the furth er evaluated with outpatient ultrasound. Sagittal and coronal reformatted images confirm above findings. COMBINED IMPRESSION: 1. No acute intracranial abnormality seen. Old fracture right orbital floor. 2. No acute fracture of the cervical spine. Moderate to advanced multilevel spondylotic change. Degen erative grade 1 anterolisthesis C3-C6 levels. 3. Outpatient thyroid ultrasound to assess for a possible 3.2 cm left thyroid lobe nodule.
[2024-02-24] MEDS: ORPHENADRINE 30 MG/ML 2 ML VIAL IM STA (08:02)
[2024-02-24] MEDS: KETOROLAC 15 MG/ML 1 ML VIAL IM STA (08:03)
[2024-02-24 08:44] VITALS: BP 159/97; PULSE 58; RESP 17; TEMP 98.8
== END 2024-02-24 08:49 | disposition home or self-care (01) ==
LOC: EC 06:18
DX: M54.12 Radiculopathy, cervical region (principal); M47.812 Spondylosis without myelopathy or radiculopathy, cervical region; M43.12 Spondylolisthesis, cervical region; M48.02 Spinal stenosis, cervical region; W18.30XA Fall on same level, unspecified, initial encounter
CPT/HCPCS: 73030; 72125; 70450; 99284; 96372 ×2; J2360; J1885

== ENCOUNTER → 2024-12-29 | Outpatient (CLI) | payer MEDICARE, OTHER ==
--- NOTE | 2024-12-30 16:21 | US ---
EXAMINATION TYPE: US thyroid st tissue head/neck DATE OF EXAM: 12/29/2024 COMPARISON: NONE CLINICAL INDICATION: Female, 59 years old with history of E041 SINGLES THYROID NODULE; Pt states poss ible nodule seen on outside MRI TECHNIQUE: Grayscale and color Doppler imaging of the thyroid gland. FINDINGS: GLAND SIZE: Right Lobe: 3.8 x 1.6 x 1.8 cm Overall Parenchyma: homogeneous Left Lobe: 5.2 x 2.7 x 3.0 cm Overall Parenchyma: heterogeneous Isthmus Thickness: 0.6 cm NODULES RIGHT: # of nodules measured on right: 0 LEFT: # of nodules measured on left: 1 1. 3.6 X 2.7 x 2.6 cm, mid, solid or almost completely solid, hypoechoic nodule, which is wider anais n tall, with smooth margins, without echogenic foci. TR 4 Prior size: No prior ISTHMUS: # of nodules measured in the isthmus: 0 Bilateral neck scanned, no evidence of lymphadenopathy. Nodule left lobe. IMPRESSION: 1. Moderately suspicious nodule left lobe thyroid. Fine-needle aspiration recommended Highest TI-RADS level nodule reported: 2017 ACR TI-RADS LEVEL: TI-RADS 4 - Moderately Suspicious: Follow if > 1 cm, FNA if > 1.5 cm TI-RADS assessment score and recommendation for follow-up based on appropriate scoring and treatment protocols. TR3: If nodule size is ? 2.5 cm, FNA is recommended. If nodule size is ? 1.5 cm, follow-up imaging at 1, 3, and 5 years is recommended. TR4: If nodule size is ? 1.5 cm, FNA is recommended. If nodule size is ? 1.0 cm, follow-up imaging at 1, 2, 3, and 5 years is recommended. TR5: If nodule size is ? 1.0 cm, FNA is recommended. If nodule size is ? 0.5 cm, annual follow-up for up to 5 years is recommended. [email or web address] [facility], , 12/30/2024 4:19 PM
== END | disposition home or self-care (01) ==
LOC: RADUSWWP 10:51
PROVIDERS: ATTEND Family Medicine
DX: E04.1 Nontoxic single thyroid nodule (principal)
CPT/HCPCS: 76536

== ENCOUNTER 2025-01-31 08:20 | Day surgery (SDC) | payer MEDICARE, OTHER ==
[2025-01-31 08:54] VITALS: PULSE 63; RESP 16; TEMP 98
[2025-01-31] MEDS: ALPRAZolam 0.5 MG TAB PO PRN (08:55)
[2025-01-31 10:20] VITALS: BP 143/86
--- NOTE | 2025-01-31 10:55 | US ---
EXAMINATION TYPE: US FNA thyroid first lesion DATE OF EXAM: 01/31/2025 10:09 AM CLINICAL INDICATION:Female, 60 years old with history of R94.6,R22.0, E04.1 Nodule; TR4, thyroid nodu le. COMPARISON: Prior ultrasound DECEMBER 29, 2024 ATTENDING: Dr. Garcia PROCEDURE: Informed consent was obtained. The risks and benefits of the procedure were discussed with the patien t. The site was marked. Timeout procedure was performed Ultrasound imaging demonstrates a large predominantly solid 3.4 cm fairly isoechoic nodule in the lef t thyroid lobe. TR 3 or 4 lesion. The patient was prepped, draped in the usual sterile fashion, and locally anesthetized with 1% lidoca ine. Five fine needle aspiration were then performed with a 25 gauge needle. Samples were sent to [facility] pathology department for further analysis. Patient tolerated the procedure without incident and wa s sent home in stable condition. IMPRESSION: Successful ultrasound guided fine needle aspiration. Intermediate to high index of suspicion noted at time of procedure. [facility], , 01/31/2025 10:53 AM
== END 2025-01-31 10:15 | disposition home or self-care (01) ==
LOC: RADPROMAIN 08:20
PROVIDERS: ATTEND Family Medicine
DX: E04.1 Nontoxic single thyroid nodule (principal)
CPT/HCPCS: 10005; 88173; 88305